=== PATIENT | female | born 1955 | race Caucasian/White ===

== ENCOUNTER → 2018-01-18 07:43 | Outpatient (CLI) | payer OTHER, SELFPAY ==
--- NOTE | 2018-01-18 07:28 | HPBI_ITS ---
MAMMOGRAPHY - BILATERAL SCREENING REASON FOR EXAM: Female, 62 years old. Routine annual screening examination. PERTINENT HISTORY: Non-contributory. TECHNIQUE: Digital bilateral breast sanna (3D mammographic acquisition) in the CC and MLO projections. 2-D mediolateral oblique (MLO) and craniocaudad (CC) views of both breasts were obtained. CAD: Full Field Digital Mammography with Computer Added Detection was performed. COMPARISON: Comparison is made with prior study dated September 04, 2014 and May 06, 2011. FINDINGS: Breast Composition: There are scattered areas of fibroglandular density. There are no dominant masses or suspicious calcifications. The previously seen nodular density in the deep slightly upper medial portion of breast as decreased further in size. It presently measures 7 mm x 5 mm. No other significant abnormalities are identified. There has been no significant change since the prior study. HPBI/SCREENING MAMM (CAD), BILAT IMPRESSION: Stable bilateral screening mammogram. Yearly follow-up mammogram recommended. (A) ASSESSMENT CATEGORY: BIRADS Category 2: Benign. A letter regarding these results will be sent to the patient by the facility within 30 days. Approximately 10% of breast cancers are not detected by mammography. A normal mammogram should not delay biopsy of a clinically suspicious abnormality. [id number] Electronically Signed: Esau Valadez MD at 8:47 EDT Tel [phone], Service support ,
== END ==
DX: Z12.31 Encounter for screening mammogram for malignant neoplasm of breast (principal)
CPT/HCPCS: 77063; 77067

== ENCOUNTER → 2019-09-06 07:06 | Outpatient (CLI) | payer OTHER, SELFPAY ==
[2019-01-30 12:21] VITALS: BMI 40.6
--- NOTE | 2019-09-06 06:49 | BI_ITS ---
MAMMOGRAPHY - BILATERAL SCREENING REASON FOR EXAM: Female, 64 years old. Routine annual screening examination. PERTINENT HISTORY: Non-contributory. TECHNIQUE: Digital bilateral breast niles (3D mammographic acquisition) in the CC and MLO projections. 2-D mediolateral oblique (MLO) and craniocaudad (CC) views of both breasts were obtained. CAD: Full Field Digital Mammography with Computer Added Detection was performed. COMPARISON: Comparison is made with prior study of January 18, 2018 and September 04, 2014. FINDINGS: Breast Composition: There are scattered areas of fibroglandular density. There are no dominant masses or suspicious calcifications. No other significant abnormalities are identified. There has been no significant change since the prior study. BI/SCREEN MAMM (CAD) W/NILES BILAT IMPRESSION: Stable bilateral screening mammogram. Yearly follow-up mammogram recommended. (A) ASSESSMENT CATEGORY: BIRADS Category 1: Negative. A letter regarding these results will be sent to the patient by the facility within 30 days. Approximately 10% of breast cancers are not detected by mammography. A normal mammogram should not delay biopsy of a clinically suspicious abnormality. [id number] Electronically Signed: Esau Valadez, at 8:58 EST , Service support ,
--- NOTE | 2019-09-06 07:08 | RAD_ITS ---
STUDY: X-RAY - RIGHT KNEE REASON FOR EXAM: Female, 64 years old. Bilateral knee pain worse on the left side. TECHNIQUE: 4 view(s) of the knee. COMPARISON: None. FINDINGS: Normal visualized distal femur. Normal visualized proximal tibia and fibula. Normal proximal tibiofibular articulation. There is moderate degenerative arthrosis of the medial femorotibial compartment with moderate joint space narrowing. Normal lateral femorotibial compartment. There is moderate degenerative arthrosis of the patellofemoral articulation. The soft tissue structures are unremarkable. RAD/Knee 4 or More Views IMPRESSION: Degenerative arthrosis. Electronically Signed: Esau Valadez, at 15:14 EST , Service support ,
--- NOTE | 2019-09-06 07:08 | RAD_ITS ---
STUDY: X-RAY - LEFT KNEE REASON FOR EXAM: Female, 64 years old. Bilateral knee pain worse on the left side. TECHNIQUE: 4 view(s) of the knee. COMPARISON: None. FINDINGS: Normal visualized distal femur. Normal visualized proximal tibia and fibula. Normal proximal tibiofibular articulation. There is severe degenerative arthrosis of the medial femorotibial compartment with severe joint space narrowing. Normal lateral femorotibial compartment. There is moderate degenerative arthrosis of the patellofemoral articulation. The soft tissue structures are unremarkable. RAD/Knee 4 or More Views IMPRESSION: Degenerative arthrosis. Electronically Signed: Esau Valadez, at 15:13 EST , Service support ,
== END ==
PROVIDERS: Visit Provider Orthopaedic Surgery
DX: M17.11 Unilateral primary osteoarthritis, right knee (principal); M17.12 Unilateral primary osteoarthritis, left knee; Z12.31 Encounter for screening mammogram for malignant neoplasm of breast
CPT/HCPCS: 73564; 77063; 77067

== ENCOUNTER → 2019-11-27 07:42 | Outpatient (CLI) | payer OTHER, SELFPAY ==
[2019-01-30 12:21] VITALS: BMI 40.6
--- NOTE | 2019-11-27 07:51 | CT_ITS ---
STUDY: CT SCAN OF THE LEFT LOWER EXTREMITY FOR [facility] PROTOCOL. REASON FOR EXAM: Female, 64 years old. LEFT KNEE REPLACEMENT SCAN. [facility] PROTOCOL RADIATION DOSAGE (If Supplied By Facility): CTDIvol = ( 44.50 ) mGy, DLP = ( 5336.50 ) mGycm. Individualized dose optimization techniques were used for this CT.? TECHNIQUE: Multiple axial tomographic images of the hip joint, knee joint and ankle joint were obtained without intravenous contrast administration. Coronal and sagittal reconstruction was obtained as well. COMPARISON: None. FINDINGS: There is a marked degree of the osteoarthritis with spur formation along the medial compartment of the knee joint. Mild degree of degenerative changes of the lateral compartment of the knee joint as well as the patellar compartment. No significant joint effusion is seen. The left hip and left ankle are unremarkable. CT/Extremity Lower without Contra IMPRESSION: Marked degree of joint space narrowing and spur formation of the knee joint as described. Electronically Signed: Esau Valadez, at 11:12 EST , Service support ,
== END ==
PROVIDERS: Visit Provider Orthopaedic Surgery
DX: M17.12 Unilateral primary osteoarthritis, left knee (principal); M21.162 Varus deformity, not elsewhere classified, left knee
CPT/HCPCS: 73700

== ENCOUNTER 2019-12-11 16:21 | Observation (INO) | payer OTHER, SELFPAY ==
[2019-01-30 12:21] VITALS: BMI 40.6
[2019-11-27 09:08] VITALS: BP 151/82; PULSE 63; RESP 16; TEMP 36.4; O2SAT 96; BMI 40.4
--- NOTE | 2019-11-27 09:27 | SDCEKG_ITS ---
Test Reason : Blood Pressure : / mmHG Vent. Rate : 058 BPM Atrial Rate : 058 BPM P-R Int : 164 ms QRS Dur : 086 ms QT Int : 420 ms P-R-T Axes : 044 -25 008 degrees QTc Int : 412 ms Sinus bradycardia Moderate voltage criteria for LVH, may be normal variant Borderline ECG Confirmed by SUNNI KWOK, RADHA ([id number]), supervising editor trailer BELEN SARAVIA ([id number]) on 11/28/2019 12:14:42 PM Referred By: ANGELO BECERRIL Confirmed By:RADHA MOELLER MD
[2019-11-27 09:53] LABS: Absolute Lymphocyte Count 0.64 X10^3/uL (0.83-4.51); Absolute Neutrophil Count 3.3 X10^3/uL (2.0-7.7); Basophil# 0.01 X10^3/uL; Basophil% 0.2 % (0-1); Eosinophil# 0.04 X10^3/uL; Eosinophils% 0.9 % (0-5); Hematocrit 39.6 % (37-47); Lymphocyte # 0.64 X10^3/ul (4.0); Mean Corp Hgb Conc 32.8 g/dL (32-36); Mean Corpuscular Volume 91.2 fL (81-99); Mean Platelet Vol. 11.1 fl (6.2-12.0); Monocyte# 0.28 X10^3/uL; Monocyte% 6.5 % (0-10); NRBC Flagged by Analyzer 0 % (0-5); Neutrophil % 77.2 % (47-70); Platelet Count 225 K/mm3 (150-450); RBC Distribution Width CV 13.2 % (11.6-14.6); RBC Distribution Width SD 44.4 fl (35.1-43.9); Red Blood Count 4.34 M/mm3 (4.2-5.4); White Blood Count 4.3 K/mm3 (4.4-11.0)
[2019-11-27 10:26] LABS: Anion Gap 4 (5-15); BUN 13 mg/dL (7-18); BUN/Creat Ratio 18.7 RATIO (10-20); Chloride 106 mmol/L (98-107); EST Glomerular Filtration Rate 90 mL/min (>60); Est Glom Filt Rate - Afr Amer 109 mL/min (>60); Estimated Creatinine Clearance 80.83 ml/min; Glucose 88 mg/dL (74-106); Potassium 3.8 mmol/L (3.5-5.1); Sodium Level 139 mmol/L (136-145)
[2019-12-11] VITALS (11 sets, daily range): BP systolic 108–155; BP diastolic 78–95; PULSE 71–88; RESP 16–18; TEMP 36.4–36.9; O2SAT 94–100; BMI 40.4
--- NOTE | 2019-12-11 13:41 | RAD_ITS ---
STUDY: X-RAY - LEFT KNEE REASON FOR EXAM: Female, 64 years old. POST OP TOTAL LEFT KNEE REPLACEMENT. TECHNIQUE: 2 views of the knee. COMPARISON: 4 plain film images of the left knee September 06, 2019. FINDINGS: Normal density of the visualized distal femur. Normal density of the visualized proximal tibia and fibula. Normal proximal tibiofibular articulation. There is no demonstrated fracture. The patient has undergone a left total knee arthroplasty. Metal prostheses overlying the femoral condyles and tibial plateau appear well seated, and in anatomic alignment. There is a metal prosthesis at the posterior margin of the patella. Gas lucencies in the peripatellar tissues are consistent with the recent surgery. There are numerous metal skin parvin along the anterior midline. RAD/Knee 1 or 2 Views IMPRESSION: Status post left total knee arthroplasty. Electronically Signed: Vimal Ayala MD at 19:37 EST , Service support ,
[2019-12-11] MEDS: Acetaminophen 500 MG Tablet 1000 MG PO ×2 (13:53→21:34)
[2019-12-11] MEDS: Gabapentin 600 MG Tablet PO (13:54)
[2019-12-11] MEDS: Lactated Ringers 1,000 ML 100 ML IV ×2 (13:55→16:15)
[2019-12-11] MEDS: Magnesium Sulfate 4gm/100mL 4 GM/100 ML IV.SOLN. IV (14:05)
[2019-12-11 14:16] LABS: Bedside Glucose 211 mg/dL (70-110)
[2019-12-11 14:16] LABS: Bedside Glucose 222 mg/dL (70-110)
--- NOTE | 2019-12-11 14:55 | KNEE_PTH ---
PATIENT: BRUCE GROSSMAN LOC: MS3 U#:[id number] AGE/SX: 64/F ROOM: MS310 RE12/11/[address]: Dr. Porfirio Hooks DO : 1955 BED: 1 DIS: 12/12/2019 SPEC #: [id number] RECD: 12/11/19 16:49 STATUS: HILLARY ALEC #: [id number] PRAVIN: 12/11/19 14:[address]: Porfirio Hooks DEPT: SURGICAL PATHOLOGY RECD BY: Marissa Weiner Tissues: Knee, NOS Procedures: Decalcification bone/plaque Surgery Specimen Level IV HEADER OPERATION: ERAS, total replacement robotic arm assist left knee PRE-OP DIAGNOSIS: Primary osteoarthritis bilateral knees TISSUE SUBMITTED: Left knee bone MICROSCOPIC DIAGNOSIS Bone and soft tissue of left knee, total knee resection: Severe degenerative joint disease. Soft tissue with polarizable crystals consistent with pseudogout. AM:aundrea 12/15/19 MICROSCOPIC DESCRIPTION Slides are reviewed. GROSS DESCRIPTION Received is one container designated left knee bone. The specimen consists of multiple fragments of enamorado-yellow bone measuring in aggregate 11 x 10 x 3 cm. Also in the specimen container is soft tissue that consists predominantly of cartilaginous tissue plus a few fragments of soft tissue measuring in aggregate 6 x 3 x 1 cm. A number of bony fragments contain articular surfaces consistent with tibial plateau and femoral condyle and displaying prominent osteophyte formation, eburnation, and bone erosion. Engineering Patternmaker sections are submitted in two cassettes as follows: 1 - soft tissue, 2 - bone after decalcification. / SRUTHI:aundrea 12/12/19 TC:5 CPT: 38588, 12976
[2019-12-11] MEDS: Betamethasone/Betamethasone 30 MG/5 ML Vial (14:59)
--- NOTE | 2019-12-11 16:21 | OP.PCM_ITS ---
Report of Operation Date of Procedure: 12/11/19 Pre-Operative Diagnosis: OA b/l knees Post-Operative Diagnosis: same Surgery/Procedure Performed:: Left TKR --robotically assisted. Intra-articular injection right knee ditching machine operating engineer: Alexsander Briceno Type of Anesthesia:: Spinal Anesthesiologist: Brendan Guajardo - Admit VTE Documentation VTE Present on Admission: No VTE Mechan Device Prophylaxis: SCD's, Thigh High TETO Hose VTE Pharm Prophylaxis ordered?: Yes
[2019-12-11 17:18] LABS: Hematocrit 40.2 % (37-47); Hemoglobin 12.9 g/dL (12.0-15.0); Mean Corp Hgb Conc 32.1 g/dL (32-36); Mean Corpuscular Hgb 29.6 pg (27.0-32.0); Mean Corpuscular Volume 92.2 fL (81-99); Mean Platelet Vol. 11.1 fl (6.2-12.0); Platelet Count 253 K/mm3 (150-450); RBC Distribution Width CV 13.4 % (11.6-14.6); RBC Distribution Width SD 45.8 fl (35.1-43.9); Red Blood Count 4.36 M/mm3 (4.2-5.4); White Blood Count 9.1 K/mm3 (4.4-11.0)
[2019-12-11] MEDS: Senna/Docusate Sodium 1 Tablet 2 TABLET PO (21:34)
[2019-12-11] MEDS: Cefazolin 1 GM/50 ML BAG IV (21:34)
[2019-12-11] MEDS: Aspirin 81 MG TAB.CHEW PO (21:34)
[2019-12-11] MEDS: Lactated Ringers 1,000 ML 125 ML IV (21:35)
[2019-12-12 04:30] VITALS: BP 144/76; PULSE 70; RESP 18; TEMP 36.4; O2SAT 94
[2019-12-12] MEDS: Acetaminophen 500 MG Tablet 1000 MG PO ×2 (05:33→14:36)
[2019-12-12] MEDS: Cefazolin 1 GM/50 ML BAG IV (05:33)
[2019-12-12 06:49] LABS: Hematocrit 37.5 % (37-47); Hemoglobin 12.3 g/dL (12.0-15.0); Mean Corp Hgb Conc 32.8 g/dL (32-36); Mean Corpuscular Hgb 29.9 pg (27.0-32.0); Mean Platelet Vol. 11.4 fl (6.2-12.0); Platelet Count 230 K/mm3 (150-450); RBC Distribution Width CV 13.3 % (11.6-14.6); Red Blood Count 4.12 M/mm3 (4.2-5.4); White Blood Count 11.6 K/mm3 (4.4-11.0)
[2019-12-12 07:10] LABS: BUN 9 mg/dL (7-18); Creatinine, Serum 0.73 mg/dL (0.55-1.02); Glucose 166 mg/dL (74-106)
[2019-12-12 07:11] LABS: Anion Gap 6 (5-15); BUN/Creat Ratio 12.4 RATIO (10-20); Calcium,Total 8.6 mg/dL (8.5-10.1); Chloride 107 mmol/L (98-107); EST Glomerular Filtration Rate 85 mL/min (>60); Est Glom Filt Rate - Afr Amer 103 mL/min (>60); Potassium 4.1 mmol/L (3.5-5.1); Sodium Level 139 mmol/L (136-145)
[2019-12-12 07:31] VITALS: BP 140/66; PULSE 64; RESP 16; TEMP 36.7; O2SAT 93
--- NOTE | 2019-12-12 07:56 | PN.ORTHO_ITS ---
Subjective: Sitting at bed side eating breakfast. Pain well managed. Patient denies chest pain, shortness of breath, calf pain, nausea vomiting. Has no other complaints. Objective: Dressings clean dry intact. Calf nontender, no signs symptoms of DVT. Vital signs labs all reviewed noted in the medical record. Patient is afebrile, neurovascular is otherwise intact. Patient no respiratory distress speaking full sentences. - Physical Exam Vitals/I&O's: Vital Signs Temp Pulse Resp BP Pulse Ox 98.0 F 64 16 140/66 H 93 12/12/19 07:31 12/12/19 07:31 12/12/19 07:31 12/12/19 07:31 12/12/19 07:31 Oxygen Flow Rate (L/min) 6 Oxygen Delivery Method Room Air Weight: 122.5 kg Body Mass Index (BMI) 40.4 Intake and Output for Last 24 Hours 12/10/19 12/11/19 12/12/19 23:59 23:59 23:59 Intake Total 1814.17 / 1814.17 1008.58 / 1008.58 Output Total 850 / 850 Balance 1814.17 / 1564.17 158.58 / 158.58 General: Alert, Oriented x3, Cooperative HEENT: PERRLA Oral: Moist Mucosa Neurological: Cranial nerves II-XII grossly intact Psych/Mental Status: Normal Affect, Alert and oriented to time, place, person, mood and affect Laboratory Results 12/11/19 13:39: POC Glucose 222 H 12/11/19 14:07: POC Glucose 211 H 12/11/19 17:02: WBC 9.1, RBC 4.36, Hgb 12.9, Hct 40.2, MCV 92.2, MCH 29.6, MCHC 32.1, RDW Std Deviation 45.8 H, RDW Coeff of Jessica 13.4, Plt Count 253, MPV 11.1 12/12/19 05:48: WBC 11.6 H, RBC 4.12 L, Hgb 12.3, Hct 37.5, MCV 91.0, MCH 29.9, MCHC 32.8, RDW Std Deviation 45.0 H, RDW Coeff of Jessica 13.3, Plt Count 230, MPV 11.4 12/12/19 05:48: Sodium 139, Potassium 4.1, Chloride 107, Carbon Dioxide 26.0, Anion Gap 6, BUN 9, Creatinine 0.73, Estim Creat Clear Calc 77.50, Est GFR (MDRD) Af Amer 103, Est GFR (MDRD) Non-Af 85, BUN/Creatinine Ratio 12.4, Glucose 166 H, Calcium 8.6 Current Medications Acetaminophen (Tylenol) 1,000 mg PO Q8 [facility] Last Admin: 12/12/19 05:33 Dose: 1,000 mg Documented by: Aspirin (Aspirin, Baby) 81 mg PO BID [facility] Last Admin: 12/11/19 21:34 Dose: 81 mg Documented by: Sodium Chloride () 250 mls @ 15 mls/hr IV .[id number] PRN PRN Reason: Saline Flush Sodium Chloride () 250 mls @ 15 mls/hr IV .[id number] PRN PRN Reason: Additional IVPB Infusion Insulin Human Lispro (Humalog Kwikpen (Bkc)) 1 - 6 unit SC Q4H PRN PRN; Protocol PRN Reason: BG>/= 180, SEE PROTOCOL Ondansetron HCl (Zofran) 4 mg IV Q8H PRN PRN PRN Reason: NAUSEA Oxycodone HCl (Oxyir) 5 - 10 mg PO Q4H PRN PRN PRN Reason: Pain Score 4-10/10 Promethazine HCl (Phenergan) 12.5 mg IM Q6H PRN PRN; Protocol PRN Reason: NAUSEA/VOMITING Senna/Docusate Sodium (Senokot-S, Luz Maria-Colace) 2 tablet PO BID [facility] Last Admin: 12/11/19 21:34 Dose: 2 tablet Documented by: Sodium Chloride () 10 - 40 ml IV UD PRN PRN Reason: SALINE FLUSH Medical Necessity - Tobacco Use Smoking Status: Never smoker Tobacco Use: Non-smoker Assessment/Plan All Active Problems (Last Updated 01/30/19 @ 12:23 by Masha Hale) Shingles (Acute) Sinusitis, acute (Acute) Acute bacterial conjunctivitis (Acute) Status post left total knee arthroplasty 1. Continue all pain medications as prescribed 2. Continue physical therapy, weight-bear as tolerated, with walker. 3. Aspirin 81 mg 1 p.o. every 12 hours x30 days for postop DVT prophylaxis 4. Encourage incentive spirometry 5. Follow-up as scheduled, see katie sheet 6. Discharge home today.
--- NOTE | 2019-12-12 08:04 | DCINST_ITS ---
Discharge Diet: No Restrictions Discharge Activity: May Not Drive, May Shower, Use Walker May shower in (days): 3 Ice area for (Minutes): 20 - each hour while awake. Weight Bearing Status: Weight bearing as tolerated Elevate: Operative Extremity Additional Activity Instructions:: Wear elastic stockings for 2 weeks after your surgery. Call your doctor if your incision/area has: Continuous Slow Oozing, Sudden Increased Bleeding, Increased Pain/ Swelling, Increased Redness, Foul Smelling Discharge Call your doctor if you observe: Fever of 101 or Higher, Coldness, Increased Pain - in extremity, Numbness or Tingling, Change in Color, Calf discomfort, Uncontrolled pain Change Dressing in (Days):: 0 - and daily as needed. Remove Dressing in (days):: 8 Cleanse incision/area with: Soap & Water Allergies/Adverse Reactions: Allergies adhesive Allergy (Verified 12/11/19 13:30) Rash Medications to take at Discharge Multivitamin [Multiple Vitamins] 1 ea PO DAILY 11/27/19 Acetaminophen [Tylenol] 1,000 mg PO Q8 #90 tab 12/12/19 Aspirin [Aspirin, Baby] 81 mg PO BID #60 tab.chew 12/12/19 Oxycodone [Oxyir] 5 - 10 mg PO Q4H PRN PRN 7 Days #84 tablet 12/12/19 Senna/Docusate Sodium [Senokot-S] 2 tablet PO BID tablet 12/12/19 The following prescriptions were given: Aspirin [Aspirin, Baby] 81 mg PO BID #60 tab.chew Transmission Status: Pending to [facility] Oxycodone [Oxyir] 5 - 10 mg PO Q4H PRN PRN 7 Days #84 tablet PRN Reason: Pain Score 4-10/10 Transmission Status: Sent to [facility] Acetaminophen [Tylenol] 1,000 mg PO Q8 #90 tab Transmission Status: Pending to [facility] Primary Care Physician: HEATHER MI [Other] Test Results: Test results from this visit will be discussed in further detail at your follow- up appointment, if applicable. Please Follow Up With: Alexsander Briceno PA-C When: as scheduled (see pink sheet)
--- NOTE | 2019-12-12 09:30 | CASEMGMT ---
AWAIS GARCIA Face to Face with patient for initial transition planning/care coordination assessment. RN CM introduced self and role at [facility]. Patient sitting in chair, alert and oriented. Patient willing to participate in assessment and is able to answer all questions appropriately. Care providers, pharmacy, and demographics verified. Patient wishes to discharge home with [facility]. RN JOSE provided patient with list of HHC in-network with insurance. Patient states she has no further needs or concerns at this time. CM to follow for discharge planning needs that may arise. PCP: Jia Sun Specialists: None Preferred Pharmacy: [facility] Retail Insurance: [facility] Prescription Benefit: yes Living Will/HPOA: yes, daughter Alize Roberts LNOK: daughter Living Arrangements: Patient lives alone in 1 story home with 2 steps and railing to enter the home. Patient independent at home prior to surgery. Transportation: Daughter DME/HHC: Patient has shower chair, raised toilet seat, grab bars, walker at home. Referral made to [facility], awaiting acceptance. Disposition Plan: Patient to discharge home with [facility], family support, and follow-up plans in place. Kanika FLOWERS, RN, CM
[2019-12-12] MEDS: Senna/Docusate Sodium 1 Tablet 2 TABLET PO (11:15)
[2019-12-12] MEDS: Aspirin 81 MG TAB.CHEW PO (11:16)
--- NOTE | 2019-12-12 12:46 | CHAPLAIN ---
Type of Pastoral Visit _x__ Initial Visit ___ Follow-up Visit ___ On-call Visit ___ General Patient Visit ___ Spiritual Assessment ___ Family Conference ___ Bereavement ___ Rapid Response ___ Code Blue ___ Other (describe below) Pastoral Care Referral From _x__ Patient ___ Family ___ Nurse ___ Physician ___ Board Mixer Tender ___ Sorority Supervisor ___ Other (describe below) Sacrament/Intervention _x__ Active listening ___ Anointing ___ Restorationist ___ Bereavement ___ Communion _x__ Nadia exploration ___ ___ Life review _x__ Prayer ___ Reconciliation ___ Sacrament of Sick _x__ Supportive presence ___ Wedding ___ Other (describe below) Pastoral Comments
--- NOTE | 2019-12-12 13:16 | CASEMGMT ---
AWAIS GARCIA called and followed up with [facility]. They are able to accept the patient with planned start of care for tomorrow. AWAIS GARCIA updated the patient and provided [facility] contact information. Patient voiced no further needs or concerns at this time.
[2019-12-12 14:39] VITALS: BP 137/66; PULSE 81; RESP 16; TEMP 36.7; O2SAT 96
== END 2019-12-12 16:55 | disposition home health service (06) ==
LOC: SDC 12-12 08:22 → MS3 12-12 08:41
PROVIDERS: Admitting Provider Orthopaedic Surgery; Referring Provider Orthopaedic Surgery; Visit Provider Orthopaedic Surgery
PROC: 0SRD0JZ Replacement of Left Knee Joint with Synthetic Substitute, Open Approach (ICD-10-PCS; CPT 27447; principal; 2019-12-11 14:25)
DX: M17.0 Bilateral primary osteoarthritis of knee (principal); M21.162 Varus deformity, not elsewhere classified, left knee; R00.1 Bradycardia, unspecified; Z79.899 Other long term (current) drug therapy
CPT/HCPCS: 01400; 20610; 27447; 64447; S2900; 36415; 73560; 80048; 82962; 85025; 85027; 87081; 88305; 88311; 93005; 96361; 96365; 96366; 97162; 97166; 97530; 99218; 99251; C1776; J7120; G0378; G0379; G0463; J0702

== ENCOUNTER 2020-03-01 13:00 | Outpatient (RCR) | payer OTHER, SELFPAY ==
[2019-01-30 12:21] VITALS: BMI 40.6
[2019-12-11 18:18] VITALS: BMI 40.4
--- NOTE | 2020-01-01 13:53 | HP.PTEVAL ---
Patient's Visit Information BRUCE GROSSMAN is a 64 year old F referred to Physical Therapy by Porfirio Hooks DO with a diagnosis of Left TKR. Date of Evaluation: 01/01/20 Physical Therapist: Rochelle Robin DPT - Visit Plan Frequency: 3x /Week Duration: 3 Weeks Plan: Left TKR 12/11/18 Focus on LE and core ROM and strength/stabilization - Subjective Findings: Patient has left TKR 12/11 Dr. Hooks at [facility]- went home 2nd day- single story home with 3 stairs to enter- no problems in/out- lives I. Fully I prior to surgery. She is fully I at this point. Had home health for 2.5 and they sent her to outpatient. They gave her exercises and sent her to [facility]- Wednesday she was at 95 degrees. Patient reports that she is more stiff than painful. Worst: 05/10 Agg: stretching Normal is more 02/08. She is not painfree at this point. Best: 12/11. Reports that pain is more dull and achy. Pain is located in the knee- does not radiate. Sleep: disturbed but is in her bed-mostly sleeps on her sides. Is back to driving. Patient wants to get back to walking for exercise. Prior to the knee being painful- bicycle riding-trail biking- rails and trails. 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 PMHX/Meds: none since surgery. - Objective Posture: FH, RS- does correct with verbal and tactile cues but does not maintain. Gait: decreased stance on the left LE- with poor heel/toe pattern- straight cane. HR/TR: able with UE A. SLS: 2 sec then LOB. Observation: incision healing well no s/s of infection. Palpation: tender along medial and lateral joint line. ROM: 5-97 degrees. Strength: Ankle: 5/5, Knee: 4+/5, Hip: 4/5 throughout Core: fair minus. Flex: HS: moderate, Gastroc: moderate - Goals Goal 1:: Patient will be I with HEP and progression Goal Time Frame: 4-6 Weeks Goal 2:: Patient lupe demo 0-115 degrees of ROM Goal Time Frame: 4-6 Weeks Goal 3:: Patient will ambulate >300 feet with a normalized gait pattern with LRD Goal Time Frame: 4-6 Weeks Goal 4:: Patient will asc/desc 8 stairs recip with 1 HR Goal Time Frame: 4-6 Weeks - Rehabilitation Potential Physical Therapy Diagnosis: Patient presents with hypomobility- she has decreased ROM, strength, flex and muscular endurance leading to abnormal gait pattern and decreased ability to perform ADL's. Rehabilitation Potential: Fair - Anticipated Interventions Patient/Client Instruction: Educate patient on: Benefits of Fitness Program Therapeutic Exercise to Include: Strength training, Endurance training, Balance training, Body mechanics, Flexibilty training, Gait and locomotor training, Passive ROM, Active ROM, Dynamic Lumbar Stabilization For the Purpose of:: To improve muscle performance and motor function TENS: Yes Cryotherapy (ice pack, ice massage): Yes Thermo therapy (hot pack): Yes Ultrasound (thermal/non thermal): No For the Purpose of:: To decrease pain Thank you for the opportunity to evaluate your patient. For Medicare and Medicare HMO plans, please review the plan of care and approve it. It will need to be FAXED BACK to us at [phone] for Medicare purposes. For Medicare only, by signing this I certify the plan of care. Please let me know if there are questions or concerns regarding this plan of care. Physician Signature: Date:
--- NOTE | 2020-01-22 12:13 | HP.PTREVAL ---
Porfirio Hooks, DO, It has been my pleasure to treat BRUCE GROSSMAN over the last 9 visits for Left TKR. Please see the progress note below for an update on the physical therapy plan of care! Subjective: DOS was 12-11-2019. She feels that she is doing ok. She has stairs in her home to basement and using a railing with a reciprical pattern. RTW on February 04... she is on her feet half and half. She has tired and stiffness at the end of the day. Her stamina by the end of the day is reduced. She is doing exercises at home: Stair step stretch, heel and toe raises, sit to stand. She is sleeping ok with tylenol. Objective/Function: pt andree Barajas indep at the end of session today to improve her workout since the gyms are closed now. Plan Plan: Work on increase flexion on an upright bike so that pt will be able to ride her bike this spring.... increase leg press as able and tallker step ups as able with ques to increase gait mechaincis. Left TKR 12/11/18 Focus on LE and core ROM and strength/stabilization Goals Goal 1:: Patient will be I with HEP and progression Goal Time Frame: 4-6 Weeks Goal Progress: Goal Met Goal 2:: Patient lupe demo 0-115 degrees of ROM Goal Time Frame: 4-6 Weeks Goal Progress: Progressing Goal 3:: Patient will ambulate >300 feet with a normalized gait pattern with LRD Goal Time Frame: 4-6 Weeks Goal Progress: Progressing Goal 4:: Patient will asc/desc 8 stairs recip with 1 HR Goal Time Frame: 4-6 Weeks Goal Progress: Progressing Anticipated Interventions Patient/Client Instruction: Educate patient on: Benefits of Fitness Program Therapeutic Exercise to Include: Strength training, Endurance training, Balance training, Body mechanics, Flexibilty training, Gait and locomotor training, Passive ROM, Active ROM, Dynamic Lumbar Stabilization For the Purpose of:: To improve muscle performance and motor function TENS: Yes Cryotherapy (ice pack, ice massage): Yes Thermo therapy (hot pack): Yes Ultrasound (thermal/non thermal): No For the Purpose of:: To decrease pain Please do not hesitate to contact me at [phone] by phone or if you have questions or concerns regarding this new plan of care! Sincerely, Tara Richard, MPT
--- NOTE | 2020-02-05 14:50 | HP.PTREVAL ---
Porfirio Hooks, DO, It has been my pleasure to treat BRUCE GROSSMAN over the last 15 visits for Left TKR. Please see the progress note below for an update on the physical therapy plan of care! Subjective: PATIENT REPORTS SHE RETURNED TO WORK TODAY AT 8AM. RELEASED TO GO BACK FULL DUTY WITHOUT RESTRICTIONS. MY STAMINA IS NOT UP YET AND I KNOW I AM GOING TO DROP TONIGHT. I CAN TELL MY LEFT LEG IS WEAK. GETTING UP OUT OF A CHAIR IS STILL CHALLENGING ESPECIALLY AT THE END OF THE DAY. STILL CAN NOT GET PEDAL ALL THE WAY AROUND ON HER BIKE - TRIED THIS WEEKEND. Objective/Function: PATIENT WAS SEEN TODAY FOR RE-ASSESSMENT OF PROGRESS TOWARD THE SET PT GOALS AND THE NEED FOR FURTHER PHYSICAL THERAPY VS READINESS FOR DISCHARGE. PATIENT IS A GOOD CANDIDATE TO CONTINUE PT BASED ON PROGRESS MADE AND ROOM FOR FURTHER IMPROVEMENT. UPON EXAM TODAY: PATIENT STARTED OUT WITH MINUS 17 DEG EXT BUT WAS DOWN TO MINUS 8 DEG EXT BY END OF SESSION. LEFT KNEE FLEXION IN LYING WITH A HEEL SLIDE IS 111 DEG TODAY. LLE STRENGTH: HIP 4/5, KNEE EXT 3-/5, KNEE FLEX 3-/5, ANKLE 5/5. SHE HAS POOR CORE STRENGTH. PATIENT IS PLEASANT AND COOPERATIVE TO WORK WITH. SHE COMMUNICATED A GOOD UNDERSTANDING OF ALL INSTRUCTIONS AFTER GIVEN TODAY. Plan Plan: CONT PT 3X'S A WK X 4 WKS FOR CORE STRENGTHENING AND DENI LE ROM, STRETCHING AND STRENGTHENING TO HELP MEET SET GOALS. PATIENT IS AGREEABLE. Goals Goal 1:: Patient will be I with HEP and progression Goal Time Frame: 4-6 Weeks Goal Progress: Goal Met Goal 2:: Patient lupe demo 0-115 degrees of ROM Goal Time Frame: 4-6 Weeks Goal Progress: Progressing Goal 3:: Patient will ambulate >300 feet with a normalized gait pattern with LRD Goal Time Frame: 4-6 Weeks Goal Progress: Progressing Goal 4:: Patient will asc/desc 8 stairs recip with 1 HR Goal Time Frame: 4-6 Weeks Goal Progress: Progressing Anticipated Interventions Patient/Client Instruction: Educate patient on: Benefits of Fitness Program Therapeutic Exercise to Include: Strength training, Endurance training, Balance training, Body mechanics, Flexibilty training, Gait and locomotor training, Passive ROM, Active ROM, Dynamic Lumbar Stabilization For the Purpose of:: To improve muscle performance and motor function TENS: Yes Cryotherapy (ice pack, ice massage): Yes Thermo therapy (hot pack): Yes Ultrasound (thermal/non thermal): No For the Purpose of:: To decrease pain Please do not hesitate to contact me at [phone] by phone or if you have questions or concerns regarding this new plan of care! Sincerely, Kristine Sheffield, PT, Cert MDT
--- NOTE | 2020-03-01 14:10 | HP.PTDCSUM ---
It has been my pleasure to treat BRUCE GROSSMAN referred by Porfirio Hooks DO, with the diagnosis of Left TKR for a total of 26 visit(s). Discharge Date: 03/01/20 Please see the following information for a summary of their discharge status. Subjective: PATIENT REPORTS HER KNEE IS DOING GOOD AND DOES NOT HURT. STATES HER LEFT ANKLE IS NO LONGER SWELLING BUT IT GETS SORE IF SHE OVER STRETCHES IT. L knee Pain Intensity (Out of 10): 0 % Improvement: 80 Objective/Function: PATIENT WAS SEEN TODAY FOR RE-ASSESSMENT OF PROGRESS TOWARD THE SET PT GOALS AND THE NEED FOR FURTHER PHYSICAL THERAPY VS READINESS FOR DISCHARGE. AT THIS POINT PATIENT IS A GOOD CANDIDATE FOR DISCHARGE. ALL PT GOALS HAVE BEEN MET. I WOULD ANTICIPATE CONTINUED IMPROVEMENT WITH HEP MOVING FORWARD. PATIENT IS AGREEABLE. UPON EXAM TODAY: PATIENT IS INDEP WITH GAIT WITHOUT ASSISTIVE DEVICE. SHE WALKS WITH A LITTLE BIT OF LLE STIFFNESS BUT IS ABLE TO DEMONSTRATE A HEEL STRIKE, FOOT FLAT AND TOE OFF PATTERN. LLE STRENGTH: HIP 4/5, KNEE 4/5, ANKLE 5/5. THERE IS JUST A SMALL AREA OF THE LEFT LATERAL KNEE THAT HAS DECREASED LIGHT TOUCH SENSATION. SHE IS NOW ABLE TO FULLY EXTEND HER LEFT KNEE AND LEFT KNEE FLEXION IN SUPINE WITH PATIENT OVER-PRESSURE IS ALMOST 118 DEG. SHE IS INDEP WITH A HEP. Goal 1:: Patient will be I with HEP and progression Goal Progress: Goal Met Goal 2:: Patient lupe demo 0-115 degrees of ROM Goal Progress: Goal Met Goal 3:: Patient will ambulate >300 feet with a normalized gait pattern with LRD Goal Progress: Goal Met Goal 4:: Patient will asc/desc 8 stairs recip with 1 HR Goal Progress: Goal Met Plan: D/C TO HEP. If there are questions or concerns regarding this patient's physical therapy, please feel free to call me at [phone]. Thank you for the referral of this patient. Sincerely, Kristine Sheffield, PT, Cert MDT
== END 2020-03-01 19:00 | disposition home or self-care (01) ==
LOC: PT 13:00
PROVIDERS: Referring Provider Orthopaedic Surgery; Visit Provider Orthopaedic Surgery
DX: M17.12 Unilateral primary osteoarthritis, left knee (principal)
CPT/HCPCS: 97110; 97161; 97164; 97530

== ENCOUNTER → 2020-06-19 13:48 | Outpatient (CLI) | payer OTHER, SELFPAY ==
[2020-02-08 12:25] VITALS: BMI 40.4
--- NOTE | 2020-06-19 13:50 | RAD_ITS ---
STUDY: X-RAY - RIGHT KNEE REASON FOR EXAM: Right knee pain, osteoarthritis. TECHNIQUE: 4 view(s) of the knee. COMPARISON: Radiographs 09/06/2019. FINDINGS: Normal visualized distal femur. There is an enchondroma in the proximal fibula as on the prior study. There is a sessile osteochondroma of the medial aspect of the proximal tibial metaphysis as on the prior study. Normal proximal tibiofibular articulation. There is severe joint space narrowing of the medial femorotibial compartment, mildly increased since the prior study. Normal lateral femorotibial compartment. There are small marginal osteophytes and moderately severe joint space narrowing of the patellofemoral articulation as on the prior study. The soft tissue structures are unremarkable. RAD/Knee 4 or More Views IMPRESSION: Arthrosis of the medial femorotibial and patellofemoral compartments. No interval change of osteochondroma of the proximal tibia and enchondroma of the proximal fibula. Electronically Signed: Jonathan Mir MD at 15:25 EDT Tel , Service support ,
--- NOTE | 2020-06-19 13:50 | RAD_ITS ---
STUDY: X-RAY - LEFT KNEE REASON FOR EXAM: Follow-up total knee arthroplasty, surgery 12/11/2019. TECHNIQUE: 3 view(s) of the knee. COMPARISON: Radiographs 12/11/2019. FINDINGS: There is an uncomplicated left total knee arthroplasty. There is a small joint effusion. RAD/Knee 3 Views IMPRESSION: Uncomplicated left total knee arthroplasty. Small joint effusion. Electronically Signed: Jonathan Mir MD at 11:06 EDT Tel , Service support ,
== END ==
PROVIDERS: Referring Provider Physician Assistant; Visit Provider Physician Assistant
DX: M17.11 Unilateral primary osteoarthritis, right knee (principal); Z96.652 Presence of left artificial knee joint
CPT/HCPCS: 73562; 73564

== ENCOUNTER → 2020-10-29 08:56 | Outpatient (CLI) | payer OTHER, SELFPAY ==
[2020-02-08 12:25] VITALS: BMI 40.4
--- NOTE | 2020-10-29 09:01 | RAD_ITS ---
STUDY: X-RAY - PELVIS AND LEFT HIP REASON FOR EXAM: Female, 65 years old. left hip pain x 6 months -- NKI TECHNIQUE: 3 views of the pelvis and hip. COMPARISON: None. FINDINGS: There is a non-specific bowel gas pattern. Normal visualized soft tissue structures. Normal bilateral iliac wings, sacroiliac joints and visualized sacrum. Normal bilateral superior and inferior pubic rami. Normal pubic symphysis. Normal bilateral ischial tuberosities. Normal visualized femoral head. Normal acetabulum. Normal hip joint. RAD/HIP, UNI W/ Pelvis 2-3 Views IMPRESSION: Normal x-ray examination of the pelvis and hip. Electronically Signed: Tex Bobby MD at 9:33 EST Tel , Service support ,
== END ==
PROVIDERS: Visit Provider Orthopaedic Surgery
DX: M25.552 Pain in left hip (principal)
CPT/HCPCS: 73502

== ENCOUNTER 2020-11-27 16:00 | Outpatient (RCR) | payer OTHER, SELFPAY ==
[2020-02-08 12:25] VITALS: BMI 40.4
--- NOTE | 2020-11-04 10:31 | HP.PTEVAL_ITS ---
Patient's Visit Information BRUCE GROSSMAN is a 65 year old F referred to Physical Therapy by Dr. Porfiiro Hooks DO with a diagnosis of L hip pain. Date of Evaluation: 11/04/20 Physical Therapist: Woody Desai DPT - Visit Plan Frequency: 2x /Week Duration: 4 Weeks Plan: Start with L glute strengthening, glute med strengthening. Quad strengthening. Add in cycling as patient feels this is benefitial. May do foam rolling to lateral hip, US if needed. - Subjective Pt. is here today for her initial evaluation with diagnosis of L hip pain. Physician was leaning more towards tendonitis. Pt. has been nice to her L with the holidays which it has felt better, but was pretty sore after doing exercises. Pt. is planning to have R knee arthroplasty at some point. Pt. has been doing wall squats adn stairs to work on her strengthening. This seems to have resulted in increased pain. Pt. did have a L hip xray- negative. Pt. reports pain at her lateral hip into gluteal region. 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 No N/T noted. No radiating pain noted. [facility]. [facility]. Pt. is hopeful to reduce symptoms in order to get back to bike riding without limitations. - Pain L hip Pain Intensity (Out of 10): 2 Pain Intensity Range: 2, 7 Comment: increased pain after stairs, squats - Objective POSTURE: Pt. has decent posture in stance. Slight anterior lean. Normal CRISTI noted. PALPATION: Pt. is tender at TFL, glute med, and piriformis muscle belly. Pt. is also veyr tender along the IT band at the lateral asepct of her L leg. NEURO: normal throughout. ROM: Pt. has goot HS length (slightly tight), good IT band length and slight tightness with her hip ER. MMT: RLE 5-/5 throughout. LLE- knee ext 4+/5, HS 5-/5; hip- flexion 4/5, abd 3+/5, ext 4/5, hip ER 4-/5. GAIT: Pt. has increased lateral hip translation during stance phase. Normal step length. STAIRS: Pt. has increased lateral hip translation during asdcending L stance phase. Increased pain noted. - Special Tests L Hip Scour: Negative L Hip RUFINA - Intraarticular Pathology: Negative L Hip FADDIR - Labrum: Negative L Hip Trendelenberg - Glut Medius: Negative L Hip Ace - IT Band: Positive - Goals Goal 1:: LTG: Pt. to be I with HEP. Goal Time Frame: 4-6 Weeks Goal 2:: STG: Pt. to have decreaed pain to touch of lateral hip and thigh to 0- 1/10. Goal Time Frame: 2-4 Weeks Goal 3:: LTG: Pt. to walk without increase in symptoms. Goal Time Frame: 4-6 Weeks Goal 4:: LTG: Pt. to have increased L hip strength by 1/2 grade in all effected ranges. Goal Time Frame: 4-6 Weeks Goal 5:: LTG: Pt. to get back to cycling without limitations. Goal Time Frame: 4-6 Weeks - Rehabilitation Potential Physical Therapy Diagnosis: Pt. has signs and symptoms consistent with L hip pain. 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 Pt. would benefit from PT to work on the above strengthening progresing back to biking and recreational actviities without limitations. Rehabilitation Potential: Excellent - Anticipated Interventions Patient/Client Instruction: Educate patient on: Condition, Plan of Care, Risk Factors, Benefits of Fitness Program For the Purpose of:: To facilitate caregiver knowledge, To improve self management, To prevent re-injury, To improve ability to perform tasks related to life management, To improve tolerance to ADL's Therapeutic Exercise to Include: Strength training, Power training For the Purpose of:: To decrease pain, To increase ROM, To improve muscle performance and motor function, To improve ability to perform ADL's, To decrease level of supervision to perform tasks, To improve ability of physical actions for home/community/work/leisure, To improve health of tissue, To decrease soft tissue restriction, To improve self management, To prevent re-injury, To improve ability to perform tasks related to life management, To improve tolerance to ADL's Manual Therapy Techniques to Include: Passive ROM, Functional dry needling, Soft tissue mobilization For the Purpose of:: To decrease pain, To decrease swelling/inflammation, To increase ROM, To improve nutrient delivery to tissue, To increase oxygenation perfusion, To improve muscle performance and motor function Thank you for the opportunity to evaluate your patient. For Medicare and Medicare HMO plans, please review the plan of care and approve it. It will need to be FAXED BACK to us at [phone] for Medicare purposes. For Medicare only, by signing this I certify the plan of care. Please let me know if there are questions or concerns regarding this plan of care. Physician Signature: Date:
--- NOTE | 2020-11-29 10:16 | HP.PTDCSUM_ITS ---
It has been my pleasure to treat BRUCE GROSSMAN referred by Dr. Porfirio Hooks DO, with the diagnosis of L hip pain for a total of 8 visit(s). Discharge Date: 11/27/20 Please see the following information for a summary of their discharge status. Subjective: Pt. reports I am 100% better Pt. reports no pain currently. Pt. reports that her hip has been feeling much better. She reports being HEP compliant without limitations. She reprots overall feeling much stronger. L hip Pain Intensity (Out of 10): 0 % Improvement: 100 Objective/Function: MMT: L hip- 5/5 throughout including hip abd, flexion, extension, IR, ER. Core strength fair. ROM: flexion 110deg NE, abd 45deg., adduction- negative obers, exte 20deg NE with vanessa test. Pt. is walking with decreased lateral hip translation this date. STAIRS: slight increase in lateral hip translation compared to gait, but no pain noted, reduced with use of HR. I talked with her about continued lateral hip strengthening to reduce stress at hip and knees with gait. Pt. reports understanding. Goal 1:: LTG: Pt. to be I with HEP. Goal Progress: Goal Met Goal 2:: STG: Pt. to have decreaed pain to touch of lateral hip and thigh to 0- 1/10. Goal Progress: Goal Met Goal 3:: LTG: Pt. to walk without increase in symptoms. Goal Progress: Goal Met Goal 4:: LTG: Pt. to have increased L hip strength by 1/2 grade in all effected ranges. Goal Progress: Goal Met Goal 5:: LTG: Pt. to get back to cycling without limitations. Goal Progress: Goal Met Plan: Pt. to be DC back to physician at this point in time. Pt. to continue with HEP to maintain lateral hip strength and reduce stress to hip/knee with all functional mobility. Discharge Comments: Pt. to be DC from PT at this point in time. Pt. reports no pain with all functional mobility. She reports having a good understanding of her exercises and is ready to progress to independent HEP this date. If there are questions or concerns regarding this patient's physical therapy, please feel free to call me at [phone]. Thank you for the referral of this patient. Sincerely, Woody Desai DPT
== END 2020-11-27 19:00 | disposition home or self-care (01) ==
LOC: PT 16:00
PROVIDERS: Referring Provider Orthopaedic Surgery; Visit Provider Orthopaedic Surgery
DX: M25.552 Pain in left hip (principal)
CPT/HCPCS: 97110; 97140; 97161; 97164

== ENCOUNTER 2021-05-08 11:46 | Emergency (ER) | payer OTHER, SELFPAY ==
[2020-02-08 12:25] VITALS: BMI 40.4
[2021-05-08 11:46] VITALS: BP 164/110; PULSE 75; RESP 16; TEMP 36.7; O2SAT 97; BMI 38.4
--- NOTE | 2021-05-08 11:56 | RAD_ITS ---
STUDY: X-RAY CHEST REASON FOR EXAM: Female, 65 years old. Chest pain TECHNIQUE: Single AP portable view of the chest. COMPARISON: None. FINDINGS: EKG electrodes are seen. The lungs are clear and expanded. There is no demonstrated pleural abnormality. Normal size heart. Normal mediastinum and arthur. Normal visualized pulmonary arteries. There is atherosclerotic calcification of the aortic arch with tortuosity. There are degenerative changes of the visualized thoracic spine. Normal visualized ribs, clavicles, and shoulders. Surgical clips are seen in the epigastric region. Small hiatal hernia. RAD/Chest 1 View (Portable) IMPRESSION: No acute abnormality is seen. Electronically Signed: Esau Valadez MD at 12:39 EDT , Service support ,
--- NOTE | 2021-05-08 11:56 | EKG12_ITS ---
Test Reason : CP Blood Pressure : / mmHG Vent. Rate : 070 BPM Atrial Rate : 070 BPM P-R Int : 166 ms QRS Dur : 082 ms QT Int : 406 ms P-R-T Axes : 042 -27 010 degrees QTc Int : 438 ms Normal sinus rhythm with sinus arrhythmia Nonspecific ST abnormality Abnormal ECG Confirmed by SUNNI KWOK, RADHA ([id number]), publication editor PIPPA SOLOMON ([id number]) on 05/12/2021 1:01:48 PM Referred By: ANDERS/HARLEEN Confirmed By:RADHA MOELLER MD
[2021-05-08] MEDS: Aspirin 81 MG TAB.CHEW 324 MG PO (12:04)
[2021-05-08 12:13] LABS: Absolute Lymphocyte Count 0.95 X10^3/uL (0.83-4.51); Absolute Neutrophil Count 4.3 X10^3/uL (2.0-7.7); Basophil# 0.02 X10^3/uL; Basophil% 0.3 % (0-1); Eosinophil# 0.05 X10^3/uL; Eosinophils% 0.9 % (0-5); Hematocrit 42.9 % (37-47); Hemoglobin 13.8 g/dL (12.0-15.0); Lymphocyte # 0.95 X10^3/ul (0.83-4.51); Lymphocyte % 16.4 % (19-41); Mean Corp Hgb Conc 32.2 g/dL (32-36); Mean Corpuscular Hgb 29.7 pg (27.0-32.0); Mean Corpuscular Volume 92.5 fL (81-99); Mean Platelet Vol. 11.1 fl (6.2-12.0); Monocyte# 0.53 X10^3/uL; Monocyte% 9.1 % (0-10); NRBC Flagged by Analyzer 0 % (0-5); Neutrophil # 4.25 X10^3/uL (2.7-7.7); Neutrophil % 73.1 % (47-70); Platelet Count 254 K/mm3 (150-450); RBC Distribution Width CV 13.9 % (11.6-14.6); RBC Distribution Width SD 47.5 fl (35.1-43.9); Red Blood Count 4.64 M/mm3 (4.2-5.4); White Blood Count 5.8 K/mm3 (4.4-11.0)
[2021-05-08 12:32] LABS: Anion Gap 4 (5-15); BUN 14 mg/dL (7-18); BUN/Creat Ratio 17.9 RATIO (10-20); Calcium,Total 9.2 mg/dL (8.5-10.1); Chloride 105 mmol/L (98-107); Creatinine, Serum 0.78 mg/dL (0.55-1.02); EST Glomerular Filtration Rate 78 mL/min (>60); Est Glom Filt Rate - Afr Amer 95 mL/min (>60); Estimated Creatinine Clearance 57.83 ml/min; Glucose 92 mg/dL (74-106); Potassium 3.8 mmol/L (3.5-5.1); Sodium Level 137 mmol/L (136-145); Troponin-I HS 3.5 pg/mL (3.0-53.7)
--- NOTE | 2021-05-08 12:52 | EDS_ITS ---
HPI History of Present Illness Chief Complaint: Chest Pain Narrative Narrative: 65-year-old female presenting with chest pain. She states she is had it intermittently over the last couple of weeks and its feels sometimes like pressure in the left chest wall. She states is been constant for the last 2 days and now she has some radiation to her left shoulder. She denies any trauma. She denies any shortness of breath, lightheadedness, diaphoresis. She has no history of DVT/PE and no risk factors. PFSH PFS Medical History Arthritis Knee pain Home Medications multivitamin 1 ea PO DAILY 11/27/19 [History Last Taken Unknown] acetaminophen 1,000 mg PO Q8 #90 tab 12/12/19 [Rx Last Taken Unknown] aspirin 81 mg PO BID #60 tab.chew 12/12/19 [Rx Last Taken Unknown] sennosides-docusate sodium 2 tab PO BID tab 12/12/19 [Rx Last Taken Unknown] Allergy/AdvReac Type Severity Reaction Status Date / Time adhesive Allergy Rash Verified 05/08/21 11:48 Social History Smoking Status: Never smoker alcohol intake: never ROS ROS ED Constitutional Constitutional ED: Denies chills, fever(s) or subjective Eyes Eyes: Denies blurry vision or change in vision Cardiovascular Cardiovascular: Reports chest pain; Denies palpitations or racing heartbeat Respiratory/Chest Respiratory/Chest: Denies cough, dyspnea or sputum Gastrointestinal Gastrointestinal: Denies abdominal pain, nausea or vomiting Genitourinary Genitourinary ED: Denies dysuria or hematuria Musculoskeletal Musculoskeletal: Denies arthralgias, myalgias or neck pain Integumentary Denies abscess or rash Neurologic Neurologic: Denies headache(s) or paresthesias Psychiatric Psychiatric: Denies anxiety or depression EXAM Physical Exam Const Vital Signs: 05/08/21 11:46 05/08/21 12:06 Temperature 98.1 F Temperature Source Temporal Pulse Rate 75 Respiratory Rate 16 Blood Pressure 164/110 H Blood Pressure Mean 128 Pulse Ox 97 Oxygen Delivery Method Room Air Room Air Positive well developed General Appearance ED: well developed and NAD HEENT Reports moist mucous membranes normocephalic and atraumatic Eyes PERRL and EOMs intact bilaterally Resp normal respiratory effort Effort and Inspection: respiratory distress Cardio regular rate and regular rhythm Extremity General Extremety ED: Yes edema; Negative for tenderness General Extremity: edema Neuro oriented x3 Sensorium / Orientation: awake and alert Psych mental status grossly normal Skin no rashes or lesions noted and no wounds Heart Score History: Slightly/Non-Suspicious ECG: Normal Age: >/= 65 years Risk Factors: 1 or 2 Risk Factors Troponin: </= Normal Limit Score: 3 MDM MDM MDM Narrative Medical decision making narrative: 65-year-old female presenting with chest pain which has been intermittent for the last 2 weeks and now constant for 2 days. Her EKG on my interpretation is sinus rhythm at [address] elevation or depression. Chest x-ray on my interpretation shows no acute cardiopulmonary process. D-dimer is negative when age-adjusted. Troponin is normal after 2 days of constant pain. I do not believe she needs a repeat troponin. Her other lab work was unremarkable. She had concern about her blood pressure at home however its been normal in the ED. Her other vitals are stable as well. I feel patient is stable for discharge at this time. She will follow-up with her PCP. Impression: 1. Chest pain Lab Data Attestation: I reviewed the patient's lab results. Labs: Laboratory Results - last 24 hr 05/08/21 05/08/21 05/08/21 12:00 12:00 12:00 WBC 5.8 RBC 4.64 Hgb 13.8 Hct 42.9 MCV 92.5 MCH 29.7 MCHC 32.2 RDW Std Deviation 47.5 H RDW Coeff of Jessica 13.9 Plt Count 254 MPV 11.1 Immature Gran % (Auto) 0.200 Neut % (Auto) 73.1 H Lymph % (Auto) 16.4 L Valencia % (Auto) 9.1 Eos % (Auto) 0.9 Baso % (Auto) 0.3 Absolute Neuts (auto) 4.3 Absolute Lymphs (auto) 0.95 Nucleated RBC % 0 D-Dimer Quant (PE/DVT) 0.60 H* Sodium 137 Potassium 3.8 Chloride 105 Carbon Dioxide 28.0 Anion Gap 4 L BUN 14 Creatinine 0.78 Estim Creat Clear Calc 57.83 Est GFR (MDRD) Af Amer 95 Est GFR (MDRD) Non-Af 78 BUN/Creatinine Ratio 17.9 Glucose 92 Calcium 9.2 Troponin I High Sens 3.5 Radiography Diagnostic Testing: Radiology Impression Chest X-Ray 05/08/21 11:56 IMPRESSION: No acute abnormality is seen. Electronically Signed: Esau Valadez MD at 12:39 EDT , Service support , Discharge Plan Triage Chief Complaint: Chest Pain ED Provider: Eitan Flores Dx/Rx/DC Orders Instructions: ED Chest Pain, Noncardiac Prescriptions: No Action multivitamin 1 EACH tablet 1 ea PO DAILY RF: 0 sennosides-docusate sodium 1 TABLET tablet 2 tab PO BID RF: 0 acetaminophen 500 MG tablet 1,000 mg PO Q8 Qty: 90 RF: 0 aspirin 81 MG tablet,chewable 81 mg PO BID Qty: 60 RF: 0 Referrals: [facility] [Other] Disposition Disposition: Home, Self Care
[2021-05-08 13:05] VITALS: BP 160/71; PULSE 58; RESP 17; O2SAT 95
== END 2021-05-08 13:06 | disposition home or self-care (01) ==
PROVIDERS: Emergency Provider Student in an Organized Health Care Education/Training Program
DX: R07.89 Other chest pain (principal); M19.90 Unspecified osteoarthritis, unspecified site; Z79.82 Long term (current) use of aspirin
CPT/HCPCS: 71045; 80048; 84484; 85025; 85379; 93005; 99285; A4216

== ENCOUNTER → 2021-06-09 14:08 | Outpatient (CLI) | payer OTHER, SELFPAY ==
--- NOTE | 2021-06-09 14:15 | RAD_ITS ---
STUDY: X-RAY - RIGHT KNEE REASON FOR EXAM: Chronic right knee pain, osteoarthritis. TECHNIQUE: 4 view(s) of the knee. COMPARISON: Radiographs 06/19/2020. FINDINGS: Normal visualized distal femur. There is a sessile osteochondroma of the medial aspect of the proximal tibial metaphysis without interval change. There is an enchondroma in the proximal fibula without interval change. Normal proximal tibiofibular articulation. There is severe joint space narrowing of the medial femorotibial compartment as on the prior study. Normal lateral femorotibial compartment. There are marginal osteophytes and severe joint space narrowing of the patellofemoral articulation as on the prior study. The soft tissue structures are unremarkable. RAD/Knee 4 or More Views IMPRESSION: Arthrosis of the medial femorotibial and patellofemoral compartments. No interval change of osteochondroma of the proximal tibia and enchondroma of the proximal fibula. Electronically Signed: Jonathan Mir MD at 14:34 EDT Tel , Service support ,
== END ==
PROVIDERS: Referring Provider Orthopaedic Surgery; Visit Provider Orthopaedic Surgery
DX: M17.11 Unilateral primary osteoarthritis, right knee (principal)
CPT/HCPCS: 73564

== ENCOUNTER → 2021-08-11 12:20 | Outpatient (CLI) | payer OTHER, SELFPAY ==
--- NOTE | 2021-08-11 12:49 | CT_ITS ---
STUDY: CT RIGHT LOWER EXTREMITY WITHOUT CONTRAST REASON FOR EXAM: Right knee osteoarthritis, presurgical planning. TECHNIQUE: Transaxial CT imaging of the lower extremity was performed. Coronal and sagittal images were reformatted. Individualized dose optimization techniques were used for this CT. COMPARISON: Radiographs 06/09/2021. FINDINGS: Knee: There are marginal osteophytes, subchondral eburnation/mild cystic change and joint space narrowing of the medial femorotibial compartment (coronal reconstructions 38-40). There is an osteochondroma of the medial aspect of the proximal tibial metaphysis (axial images 403-414). There are small marginal osteophytes with preservation of joint space of the lateral femorotibial compartment. There are marginal osteophytes, subchondral cystic change of the patella and joint space narrowing of the patellofemoral articulation (sagittal reconstructions 36-40). Normal proximal tibiofibular articulation. There is an enchondroma in the proximal fibular metaphysis (coronal reconstructions 54-57) measuring approximately 1.1 cm in length. There is no joint effusion. The quadriceps tendon is grossly normal. The patellar tendon is grossly normal. Normal Hoffa''s fat pad. There is mild vascular calcification. Hip: Unremarkable right hip. Ankle: Normal tibiotalar, posterior subtalar and talonavicular articulations. There is a plantar calcaneal enthesophyte. CT/Extremity Lower without Contra IMPRESSION: Right knee osteoarthritis. Osteochondroma of the proximal tibia. Enchondroma in the proximal fibula. Electronically Signed: Jonathan Mir MD at 15:01 EDT Tel , Service support ,
== END ==
PROVIDERS: Referring Provider Orthopaedic Surgery; Visit Provider Orthopaedic Surgery
DX: M17.11 Unilateral primary osteoarthritis, right knee (principal)
CPT/HCPCS: 73700

== ENCOUNTER 2021-08-25 17:05 | Observation (INO) | payer OTHER, SELFPAY ==
--- NOTE | 2021-08-11 12:41 | EKG12_ITS ---
Test Reason : PRE OP Blood Pressure : / mmHG Vent. Rate : 062 BPM Atrial Rate : 062 BPM P-R Int : 158 ms QRS Dur : 082 ms QT Int : 406 ms P-R-T Axes : 036 -25 034 degrees QTc Int : 412 ms Normal sinus rhythm Normal ECG Confirmed by SUNNI KWOK, RADHA ([id number]), movie editor PIPPA SOLOMON ([id number]) on 08/12/2021 9:29:41 AM Referred By: Porfirio Hooks Confirmed By:RADHA MOELLER MD
[2021-08-11 13:49] LABS: Hematocrit 43.1 % (37-47); Hemoglobin 13.7 g/dL (12.0-15.0); Mean Corp Hgb Conc 31.8 g/dL (32-36); Mean Corpuscular Hgb 29.5 pg (27.0-32.0); Mean Corpuscular Volume 92.7 fL (81-99); Mean Platelet Vol. 11.5 fl (6.2-12.0); Platelet Count 263 K/mm3 (150-450); RBC Distribution Width SD 47.5 fl (35.1-43.9); Red Blood Count 4.65 M/mm3 (4.2-5.4); White Blood Count 5.5 K/mm3 (4.4-11.0)
[2021-08-11 14:11] LABS: Magnesium 2.2 mg/dL (1.6-2.6)
[2021-08-11 14:19] LABS: Anion Gap 6 (5-15); BUN 16 mg/dL (7-18); BUN/Creat Ratio 21.5 RATIO (10-20); Calcium,Total 9.4 mg/dL (8.5-10.1); Chloride 107 mmol/L (98-107); Creatinine, Serum 0.74 mg/dL (0.55-1.02); EST Glomerular Filtration Rate 83 mL/min (>60); Est Glom Filt Rate - Afr Amer 100 mL/min (>60); Glucose 92 mg/dL (74-106); Potassium 4.1 mmol/L (3.5-5.1); Sodium Level 141 mmol/L (136-145)
[2021-08-11 14:23] LABS: Hemoglobin A1c 5.5 % (3.8-5.6)
[2021-08-25] VITALS (11 sets, daily range): BP systolic 114–149; BP diastolic 59–80; PULSE 68–81; RESP 16; TEMP 36.2–36.4; O2SAT 92–100; BMI 43.5
[2021-08-25] MEDS: Gabapentin 600 MG Tablet PO (13:47)
[2021-08-25] MEDS: Acetaminophen 500 MG Tablet 1000 MG PO ×2 (13:47→21:31)
[2021-08-25] MEDS: Lactated Ringers 1,000 ML 100 ML IV (13:49)
[2021-08-25] MEDS: Lactated Ringers 1,000 ML 999 ML IV (14:30)
[2021-08-25] MEDS: Lactated Ringers 1,000 ML 125 ML IV (14:30)
--- NOTE | 2021-08-25 15:00 | KNEE_PTH ---
PATIENT: BRUCE GROSSMAN LOC: MS2 U#:[id number] AGE/SX: 65/F ROOM: [facility] RE08/25/[address]: Dr. Porfirio Hooks DO : 1955 BED: 1 DIS: 08/26/2021 SPEC #: [id number] RECD: 08/26/21 09:33 STATUS: HILLARY ALEC #: [id number] PRAVIN: 08/25/21 15:[address]: Porfirio Hooks DEPT: SURGICAL PATHOLOGY RECD BY: Marissa Weiner Tissues: Knee, NOS Procedures: Decalcification bone/plaque Surgery Specimen Level IV HEADER OPERATION: Robotic assisted right total knee PRE-OP DIAGNOSIS: Osteoarthritis right knee TISSUE SUBMITTED: Right debrided bone and tissue MICROSCOPIC DIAGNOSIS Bone and tissue of right knee, total knee resection: Severe degenerative joint disease. Mild synovial hyperplasia. AM:aundrea 08/29/2021 MICROSCOPIC DESCRIPTION Slides are reviewed. GROSS DESCRIPTION Received is one container designated bone and soft tissue right knee. The specimen consists of multiple fragments of enamorado-yellow bone measuring in aggregate 11 x 7 x 3.5 cm. Also in the specimen container are multiple fragments of yellow-white soft tissue measuring in aggregate 5.5 x 1.5 x 1 cm. The soft tissue predominantly consists of cartilaginous tissue. A number of bony fragments contain articular surfaces consistent with tibial plateau and femoral condyle and displaying prominent osteophyte formation, eburnation and bone erosion. Senior Clinical Study Manager sections are submitted in two cassettes as follows: 1 - cartilaginous tissue, 2 - bone after decalcification. / SJ:aundrea 08/26/21 TC:5 CPT: 99417, 07898
--- NOTE | 2021-08-25 16:14 | PCM.OPRPT ---
Report of Operation Date of Procedure: 08/25/21 Pre-Operative Diagnosis: OA right knee Post-Operative Diagnosis: same Surgery/Procedure Performed:: Right TKR Description of Surgical Findings:: Report of Operation Date of Procedure: 08/25/21 Preoperative Diagnosis: [ right ] knee primary osteoarthritis Postoperative Diagnosis: [right ] knee primary osteoarthritis Operation: Robotic Assisted Knee Total Arthroplasty, [ right ] knee Surgeon: Dr Porfirio Hooks DO Market Analyst: Alexsander Briceno PA-C Anesthesia: spinal Anesthesiologist: Brendan Guajardo M.D. Findings: Stable knee with good patella tracking Specimen(s): Bony cuts Complications: No intraoperative complications Estimated Blood Loss: 20 cc IV Fluids: 1000 cc crystalloid Implants Used: 1. Laura Triathlon size 5 press-fit CR femur 2. Mcdermitt Triathlon size 5 tibia 3. 32 mm patella 4. 9 mm CS polyethylene Brief History Operative Indications: [ (65 y/o female) ] with history of [ right ] knee osteoarthrosis with radiographic findings with loss of joint space, osteophyte formation and subchondral sclerosis. Failed conservative measures as mentioned in the H&P. Discussion of total knee arthroplasty as well as risk and benefits were discussed with the patient including but not limited to blood loss, DVTs, PEs, neurovascular damage, general risk of anesthesia including loss of life, and stiffness or instability were also discussed with the patient. Patient demonstrated understanding and was able to sign informed consent. Procedure: On the date of procedure, patient's [right ] lower extremity was marked in the preoperative area. The patient was then taken back to the operating room where that patient was placed on the table in the supine position. All bony prominences were identified and well-padded. Anesthesia assumed control of the C-spine and airway throughout the remainder of the procedure. A tourniquet was placed on the [right ] upper thigh and the leg was prepped in a sterile fashion. The surgeon then scrubbed at this time. Upon reentering the room, the [right ] lower extremity was draped in a standard orthopedic fashion. A timeout was then called and everyone agreed upon the side, the site, the procedure to be performed, patient's identity and antibiotics given. Esmarch bandage was used to exsanguinate the extremity and the tourniquet was placed up to 300 mmHg with the knee in flexion. A midline skin incision was made and a sharp dissection was taken down through skin, subcutaneous tissue and fat. The standard medial parapatellar incision was made and the patella was subluxed laterally. An appropriate deep MCL release was done and the fat pad was resected. Our attention was then directed to the patella. The patella was everted and a flat resection was made. The knee was then flexed up and 2 femoral pins were placed inside the incision and 2 tibial pins were placed outside the incision in the medial tibia bicortically. Once this was completed, the 2 checkpoints in the femur and tibia were placed. Knee was then flexed up and the bony landmarks were registered. Once the was completed, the knee taken through range of motion and manually stressed allowing us to plan for an appropriate tibial cut. The robotic arm was brought into the field sterilely and checkpoint and saw were registered. Based on the patient's deformity, the tibial cut was made in [2 degrees varus ]. At this time, the tensioner was then placed in the joint and ligament tension was checked at 90 degrees and full extension. Based on the patient's ligamentous tension, appropriate adjustments were made to the operative plan and ligament releases were done. Once we were happy with our operative plan with balanced flexion and extension gaps, our attention was directed to the femur. The robot was brought into the field sterilely and registered. Posterior condylar cuts, anterior chamfer cuts and anterior cuts were appropriately made for a [size 5 ] femur. When these were completed, the saws were switched out in the distal femoral and posterior chamfer cuts were made. Protecting the soft tissue throughout this time. A [size 5 ] base plate was selected. The knee was flexed to 90 degrees and soft tissues and posterior osteophytes were removed from the joint. 40 cc of the periarticular injection was injected into the posterior medial corner of the joint. The appropriate trials were then placed on the femur and tibia. A trial polyethylene was trialed to ensure proper balancing and stability of the knee. The appropriate tibial internal rotation was then marked with a bovie. Our attention was then directed to the patella. The lug holes were drilled and the patella trial was placed. Patellar tracking was checked and deemed appropriate. Once we were happy, lug holes were drilled for the femur and trial components were removed. The tibia was subluxed and pinned into place and the keel was punched and drilled appropriately. Final components were verified and opened. The wound was copiously irrigated with normal saline. The components were impacted into place with the tibia, femur and finally the patella. The trial poly component was placed and the knee was placed in full extension. The tracking, alignment and balance were verified and a [ ] polyethylene component was placed. Once the final components were placed an Irrisept lavage was performed and the wound was copiously irrigated with normal saline solution and the periarticular injection was given. the wound was closed in a layer-quiñones fashion using #1 vicryl interrupted sutures for the arthrotomy, 2-0 interrupted vicryl suture for the subcuticular layer and parvin for final skin closure. A sterile compressive dressing was then placed. The patient was then awakened from anesthesia, transferred to the [place]vue and transferred to the PACU for recovery. My physician executive personal assistant was a vital part of this case. He was important in appropriate retraction during the case, and protection of soft tissues during bony cuts. His intimate knowledge of the case and my steps aided in safe and expedient completion of the procedure as well as appropriate position of the leg during the case. He was also vital in assisting with closure under my direct supervision. Due to the complexity of this case, robotic arm was used to assist in the surgery to improve accuracy and clinical outcomes. Post-op Plan: DVT ppx; ASA 81 mg BID, thigh high compression stockings Follow up: in office in 2 weeks for wound check PT: to start POD #0 at hospital, outpatient PT should be arranged. Preoperative antibiotic: Ancef 3 grams IV Porfirio Hooks DO Surgeon: Porfirio Hooks wrapper dipper: Alexsander Briceno Type of Anesthesia: Spinal Anesthesiologist: Brendan Guajardo Estimated Blood Loss (mL): 20 cc Fluids Replaced: 1000 cc crystalloid Admit VTE Documentation VTE Present on Admission: No VTE Mechan Device Prophylaxis: SCD's and Thigh High TETO Hose VTE Pharm Prophylaxis ordered?: Yes
--- NOTE | 2021-08-25 17:40 | RAD_ITS ---
STUDY: X-RAY - RIGHT KNEE REASON FOR EXAM: Female, 65 years old. post op -- AP and Lateral xray of operative knee in PACU TECHNIQUE: 2 view(s) of the knee. COMPARISON: June 09, 2021 FINDINGS: Newly placed tricompartmental hardware is present demonstrating good bony contact and alignment. The tibial stem is non-cemented. Tract muller are seen in the undersurface of the patella due to placement of a radiolucent prosthetic component. There are expected postoperative changes in the soft tissues and joint including gas, fluid, and swelling. Osteotomy defects are seen in the distal femur and proximal tibial shaft. Multiple overlying skin parvin are present. Broad-based benign osteochondroma of the medial side of the proximal tibial metaphysis noted. RAD/Knee 1 or 2 Views IMPRESSION: Status post right knee arthroplasty Electronically Signed: Raheem Hodge MD at 19:31 EDT , Service support ,
[2021-08-25] MEDS: Cefazolin 1 GM/50 ML BAG IV (21:25)
[2021-08-25] MEDS: Senna/Docusate Sodium 1 Tablet 2 TABLET PO (21:30)
[2021-08-25] MEDS: Aspirin 81 MG TAB.CHEW PO (21:31)
[2021-08-26 00:07] VITALS: BP 121/64; PULSE 76; RESP 18; TEMP 36.3; O2SAT 93
[2021-08-26 05:15] VITALS: BP 148/78; PULSE 76; RESP 16; TEMP 36.7; O2SAT 92
[2021-08-26] MEDS: Cefazolin 1 GM/50 ML BAG IV (05:17)
[2021-08-26] MEDS: Acetaminophen 500 MG Tablet 1000 MG PO ×2 (05:17→14:44)
[2021-08-26] MEDS: oxyCODONE 5 MG Tablet PO ×2 (05:17→10:52)
--- NOTE | 2021-08-26 05:43 | PCS.PANDOC ---
PANDEMIC DOCUMENTATION INITIATED: Date: 08/25/2021 Time: 1939
[2021-08-26 06:33] LABS: Hematocrit 38.4 % (37-47); Hemoglobin 12.8 g/dL (12.0-15.0); Mean Corp Hgb Conc 33.3 g/dL (32-36); Mean Corpuscular Volume 90.1 fL (81-99); Mean Platelet Vol. 10.9 fl (6.2-12.0); Platelet Count 222 K/mm3 (150-450); RBC Distribution Width CV 14.2 % (11.6-14.6); Red Blood Count 4.26 M/mm3 (4.2-5.4); White Blood Count 12.3 K/mm3 (4.4-11.0)
[2021-08-26 06:58] LABS: Anion Gap 9 (5-15); BUN 9 mg/dL (7-18); Calcium,Total 8.6 mg/dL (8.5-10.1); Chloride 105 mmol/L (98-107); Creatinine, Serum 0.69 mg/dL (0.55-1.02); EST Glomerular Filtration Rate 90 mL/min (>60); Est Glom Filt Rate - Afr Amer 109 mL/min (>60); Estimated Creatinine Clearance 53.81 ml/min; Glucose 146 mg/dL (74-106); Potassium 4.4 mmol/L (3.5-5.1); Sodium Level 138 mmol/L (136-145)
--- NOTE | 2021-08-26 07:49 | PN.ORTHO_ITS ---
Subjective Subjective Patient sitting at bedside. Patient states pain is been very well managed. Patient states she did well with therapy. Patient denies chest pain, shortness of breath, calf pain, nausea vomiting. Patient states she is ready for discharge home. Patient plans on doing home therapy. Objective Data Objective Data Vital Signs: Vital Signs Temp Pulse Resp BP Pulse Ox 98.1 F 76 16 148/78 H 92 08/26/21 05:15 08/26/21 05:15 08/26/21 05:15 08/26/21 05:15 08/26/21 05:15 Oxygen Flow Rate (L/min) 6 Oxygen Delivery Method Room Air Weight: 126.2 kg Body Mass Index (BMI) 43.5 Intake & Output: Intake and Output for Last 24 Hours 08/24/21 08/25/21 08/26/21 23:59 23:59 23:59 Intake Total 2875.41 / 2875.41 187 / 187 Output Total 600 / 600 400 / 400 Balance 2275.41 / 2275.41 -213 / -213 Lab / Micro Data Result Diagrams: 08/26/21 06:24 08/26/21 06:24 Labs: Laboratory Results - last 24 hr 08/26/21 06:24: WBC 12.3 H, RBC 4.26, Hgb 12.8, Hct 38.4, MCV 90.1, MCH 30.0, MC HC 33.3, RDW Std Deviation 47.0 H, RDW Coeff of Jessica 14.2, Plt Count 222, MPV 10.9 08/26/21 06:24: Sodium 138, Potassium 4.4, Chloride 105, Carbon Dioxide 24.0, Anion Gap 9, BUN 9, Creatinine 0.69, Estim Creat Clear Calc 53.81, Est GFR (MDRD) Af Amer 109, Est GFR (MDRD) Non-Af 90, BUN/Creatinine Ratio 13.0, Glucose 146 H, Calcium 8.6 Micro: Microbiology 08/11/21 12:28 Swab (Method) Nasal Screen MRSA/MSSA - Final Radiography Diagnostic Testing: Radiology Impression Knee X-Ray 08/25/21 17:40 IMPRESSION: Status post right knee arthroplasty Electronically Signed: Raheem Hodge MD at 19:31 EDT , Service support , Physical Exam Narrative The dressing is clean dry intact. Negative signs or symptoms of DVT. Vital signs labs reviewed noted medical record. Patient is no respiratory distress, speaking in full sentences. Patient neurovascular is intact to lower extremities. Const alert and oriented x3 Eyes PERRL Neuro CN's II-XII intact bilaterally Psych mental status grossly normal Assessment & Plan Assessment/Plan (1) Status post total right knee replacement not using cement: PLAN: 1. Continue all pain medications as prescribed 2. Continue physical therapy, weight-bear as tolerated with walker 3. Aspirin 81 mg 1 p.o. every 12 hours x30 days for postop DVT prophylaxis 4. Encourage incentive spirometry 5. Follow-up as scheduled see pink sheet 6. Discharge home today
--- NOTE | 2021-08-26 07:52 | PCM.DC ---
Discharge Instructions Diet Discharge Diet: No restrictions Activity Discharge Activity: May Not Drive, May Shower and Use Walker May shower in (days): 3 Ice area for (Minutes): 20 (every hour while awake.) Weight Bearing Status: Weight bearing as tolerated Keep extremity elevated above heart level: Operative Extremity Dressing / Incision Call your doctor if your incision/area has: Continuous Slow Oozing, Sudden Increased Bleeding, Increased Pain/ Swelling, Increased Redness and Foul Smelling Discharge Call your doctor if you observe: Fever of 101 or Higher, Coldness, Increased Pain (in extremity), Numbness or Tingling, Change in Color, Calf discomfort and Uncontrolled pain Change Dressing in: do not change dressing Remove Dressing in: 1 week Cleanse incision/area with: Soap & Water Follow Up Care Please Follow Up With: Alexsander Briceno PA-C When: As scheduled (see pink sheet) Test Results: Test results from this visit will be discussed in further detail at your follow-up appointment, if applicable. Discharge Plan Admission Admit Date/Time: 08/25/21 17:05 Primary Reason for Your Visit: Right total knee Attending Provider: Porfirio Hooks Discharge Orders/Prescriptions Prescriptions: New acetaminophen 500 mg Tablet 1,000 mg PO Q8 30 Days Qty: 180 RF: 0 aspirin 81 mg Tablet,Chewable 81 mg PO BID 30 Days Qty: 60 RF: 0 oxycodone 5 mg Tablet 5 - 10 mg PO Q4H PRN PRN (Reason: Pain Score 4-10) 7 Days Qty: 84 RF: 0 Continued losartan 50 mg Tablet 50 mg PO DAILY RF: 0 meloxicam 15 mg Tablet 15 mg PO DAILY RF: 0 Referrals / Follow Up: HEATHER [facility] [Other] Disposition Disposition (needs filled in before D/C Order can be placed): Home, Self Care
[2021-08-26 10:47] VITALS: BP 131/61; PULSE 73; RESP 16; TEMP 36.4; O2SAT 93
[2021-08-26] MEDS: Aspirin 81 MG TAB.CHEW PO (10:50)
--- NOTE | 2021-08-26 11:10 | CASEMGMT ---
AWAIS GARCIA Face to Face with patient for initial transition planning/care coordination assessment. RN JOSE introduced self and role at [facility]. Patient lying in bed, alert and oriented. Patient willing to participate in assessment and is able to answer all questions appropriately. Care providers, pharmacy, and demographics verified. Patient wishes to discharge home, with [facility] for therapy. Patient has had [facility] in the past and would like them again. Patient states she has no further needs or concerns at this time. Referral sent to [facility] and waiting acceptance. CM to follow for discharge planning needs that may arise. PCP: Jia Sun Specialists: gracia Hooks Pharmacy: [facility] retail Insurance: [facility] Prescription Benefit: yes Living Will/HPOA: yes Alize Roberts LNOK: daughter Living Arrangements: Patient lives alone in a single story home with 3 steps and railing to enter the home. Patient states she was independent at home prior to surgery Transportation: [facility] DME/HHC: Patient states she has shower chair, raised toilet, cane, walker at home. Patient has had [facility] in the past. Disposition Plan: Patient to discharge home with [facility], family support, and follow-up plans in place. Kanika FLOWERS, RN, CM
--- NOTE | 2021-08-26 12:13 | CHAPLAIN ---
Type of Pastoral Visit _x__ Initial Visit ___ Follow-up Visit ___ On-call Visit ___ General Patient Visit ___ Spiritual Assessment ___ Family Conference ___ Bereavement ___ Rapid Response ___ Code Blue ___ Other (describe below) Pastoral Care Referral From _x__ Patient ___ Family ___ Nurse ___ Physician ___ Embroidery Patternmaker ___ Metal Punch Press Operator ___ Other (describe below) Sacrament/Intervention _x__ Active listening ___ Anointing ___ Oriental Orthodox ___ Bereavement ___ Communion _x__ Nadia exploration ___ _x__ Life review _x__ Prayer ___ Reconciliation ___ Sacrament of Sick _x__ Supportive presence ___ Wedding ___ Other (describe below) Pastoral Comments
--- NOTE | 2021-08-26 13:30 | CASEMGMT ---
AWAIS GARCIA recieved call from Raheem at [facility] and they are able to accept the patient but will use their sister company [facility] to open patient tomorrow. AWAIS GARCIA updated patient and she is agreeable to plan. Patient had no further questions or concerns at this time.
[2021-08-26 16:45] VITALS: BP 132/60; PULSE 76; RESP 16; TEMP 36.7; O2SAT 95
[2021-08-27 07:35] LABS: Bedside Glucose 85 mg/dL (70-110)
== END 2021-08-26 16:30 | disposition home health service (06) ==
LOC: SDC 17:10 → MS2 17:10
PROVIDERS: Anesthesiology; Admitting Provider Orthopaedic Surgery; Referring Provider Orthopaedic Surgery; Visit Provider Orthopaedic Surgery
PROC: 0SRC0JZ Replacement of Right Knee Joint with Synthetic Substitute, Open Approach (ICD-10-PCS; CPT 27447; principal; 2021-08-25 14:30)
DX: M17.11 Unilateral primary osteoarthritis, right knee (principal); Z79.899 Other long term (current) drug therapy; I10 Essential (primary) hypertension; E66.01 Morbid (severe) obesity due to excess calories; Z68.41 Body mass index [BMI] 40.0-44.9, adult
CPT/HCPCS: 01402; 27447; 64447; S2900; 36415; 73560; 80048; 82962; 83036; 83735; 85027; 87081; 88305; 88311; 93005; 96365; 96366; 97110; 97161; 97166; 97530; 99218; 99251; C1776; J7050; J7120; G0378; G0463; J2405

== ENCOUNTER → 2021-09-22 13:56 | Outpatient (CLI) | payer OTHER, SELFPAY ==
--- NOTE | 2021-09-22 14:07 | RAD_ITS ---
STUDY: X-RAY - RIGHT KNEE REASON FOR EXAM: Female, 66 years old. Follow-up after total knee arthroplasty. TECHNIQUE: 3 view(s) of the knee. COMPARISON: 08/25/2021. FINDINGS: Osteopenia. Three component total knee arthroplasty in anatomic alignment. Diffuse mild soft tissue swelling with small joint effusion. RAD/Knee 4 or More Views IMPRESSION: Anatomic alignment of the total knee arthroplasty with diffuse soft tissue swelling and small joint effusion. Electronically Signed: Alexsander Long MD at 9:41 EST , Service support ,
== END ==
PROVIDERS: PCP Family Medicine; Referring Provider Orthopaedic Surgery; Visit Provider Orthopaedic Surgery
DX: Z96.651 Presence of right artificial knee joint (principal)
CPT/HCPCS: 73564

== ENCOUNTER 2021-11-14 10:00 | Outpatient (RCR) | payer OTHER, SELFPAY ==
--- NOTE | 2021-09-17 12:11 | HP.PTEVAL_ITS ---
Patient's Visit Information BRUCE GROSSMAN is a 66 year old F referred to Physical Therapy by Dr. Porfirio Hooks DO with a diagnosis of Right TKR. Date of Evaluation: 09/17/21 Physical Therapist: Rochelle Robin DPT - Visit Plan Frequency: 3x /Week Duration: 4 Weeks Plan: Right TKE 08/25/21. Focus on ROM, strength and functional mobility - Subjective Right TKR by Dr. Hooks Aug 25, 2021. Had her other one done Dec 2019- this one is more swollen and the bruising in more significant down the gonzalez. Stayed in the hospital overnight- single story home- three stairs to enter- with HR- doing them one a time no issues. Fully I prior to surgery- lives I but can has people available as needed. Worst: 05/10 Agg: evening, movement. 11:00 is the best time of day. Eases: ice intermittently, oxycodone sometimes at night. Best: 01/08. Describes pain as as anterior distal patella constant burning- both other pains comes and goes- gonzalez is sore and still bruised. Does have some hip pain but they put her on Meloxicam that diminished that. No N/T in the toes. Did have home health- finished up on Wednesday and they sent her here to finish her therapy. Is back to driving this week. No loss or change in bowel or bladder. They took parvin out a week ago- no x-rays since surgery. She has a follow up on Wednesday. 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 Sleep: in bed- disturbed- side sleeper- wakes her when she needs to move. PMHx/Meds: no changes since hospital stay except Meloxicam. - Objective Posture: FH, RS- can correct with verbal cues but does not maintain. Gait: decreased stance on the right LE with poor heel/toe pattern- no AD. HR/TR: able with UE A. SLS: weight shift but unable to SLS. Stairs: asc/desc 8 recip with poor control and significant bilateral UE. Girth: Patella: 58.5 cm 6 above: 74 cm. ROM: 10-100 degrees. Strength: core: fair, Hip: SLR: moderate lag, quad set: visible, add/abd: 4+/5, Extn: 4+/5, Knee: flexion: 12.5 lbs, Extn: 19.1. Flex: HS: severe, Gastroc: severe. Observation: incision healing well- small section towards top with steri-strips intact- no s/s of infection - Balance/Special Test Scores Lower Extremity Functional Score: 17 TUG Test Time Seconds: 15.96 WOMAC Total Score: 57 WOMAC Percentatge: 35.2300 - Goals Goal 1:: Patient will be I with HEP and progression Goal Time Frame: 4-6 Weeks Goal 2:: Patient will demo 0-115 degrees Goal Time Frame: 4-6 Weeks Goal 3:: Patient will asc/desc 8 recip with 1 HR Goal Time Frame: 4-6 Weeks Goal 4:: Patient will ambulate >300 feet with a normalized gait pattern Goal Time Frame: 4-6 Weeks - Rehabilitation Potential Physical Therapy Diagnosis: Patient presents with hypomobility- she has decreased pain free ROM, strength, flex and muscular endurance leading to poor posture and increased pain with ADL's. Rehabilitation Potential: Good - Anticipated Interventions Patient/Client Instruction: Educate patient on: Benefits of Fitness Program Therapeutic Exercise to Include: Strength training, Endurance training, Balance training, Coordination, Agility training, Body mechanics, Postural training, Flexibilty training, Gait and locomotor training, Passive ROM, Active ROM, Dynamic Lumbar Stabilization, Scapular Strength/Stabilization For the Purpose of:: To improve muscle performance and motor function TENS: Yes Cryotherapy (ice pack, ice massage): Yes Thermo therapy (hot pack): Yes Ultrasound (thermal/non thermal): No Thank you for the opportunity to evaluate your patient. For Medicare and Medicare HMO plans, please review the plan of care and approve it. It will need to be FAXED BACK to us at [phone] for Medicare purposes. For Medicare only, by signing this I certify the plan of care. Please let me know if there are questions or concerns regarding this plan of care. Physician Signature: Date:
--- NOTE | 2021-10-20 11:24 | HP.PTREVAL ---
Dr. Porfirio Hooks, DO, It has been my pleasure to treat BRUCE GROSSMAN over the last 12 visits for Right TKR. Please see the progress note below for an update on the physical therapy plan of care! Subjective: Patient reports that she has fatigue and edema but its not really painful. When she has pain is in the gonzalez but comes and goes. She is not back to work yet- has another 4 weeks- Goes back Nov 17. Still challenged from getting up from the commode in the community and the fatigue. She feels that continuation of therapy is a good idea. Objective/Function: Posture: FH, RS- can correct with verbal cues but does not maintain. Gait: slightly antalgic- decreased stance on the right LE. HR/TR: able with UE A. SLS: 5 sec Stairs: asc/desc 8 recip with 2 HR. Girth: Patella: 51.0 cm 6 above: 72ncm. ROM: 0-115 degrees. Strength: core: fair, Hip: SLR: no lag, quad set: visible, add/abd: 4+/5, Extn: 4+/5, Knee: flexion: 24 lbs, Extn: 31. Flex: HS: severe, Gastroc: severe. Observation: incision healing well- no open areas Plan Plan: Right TKR 08/25/21. Focus on ROM, strength and functional mobility. 10/20/21: Continue to progress towards goals and functional mobility. Balance/Gait/Functional tests - Balance/Special Test Scores Lower Extremity Functional Score: 44 TUG Test Time Seconds: 9.6 Tug Test: <10 sec.=free mobile WOMAC Total Score: 21 WOMAC Percentage: 78.1300 Goals Goal 1:: Patient will be I with HEP and progression Goal Time Frame: 4-6 Weeks Goal Progress: Progressing Goal 2:: Patient will demo 0-115 degrees Goal Time Frame: 4-6 Weeks Goal Progress: Goal Met Goal 3:: Patient will asc/desc 8 recip with 1 HR Goal Time Frame: 4-6 Weeks Goal Progress: Progressing Goal 4:: Patient will ambulate >300 feet with a normalized gait pattern Goal Time Frame: 4-6 Weeks Goal Progress: Progressing Anticipated Interventions Patient/Client Instruction: Educate patient on: Benefits of Fitness Program Therapeutic Exercise to Include: Strength training, Endurance training, Balance training, Coordination, Agility training, Body mechanics, Postural training, Flexibilty training, Gait and locomotor training, Passive ROM, Active ROM, Dynamic Lumbar Stabilization, Scapular Strength/Stabilization For the Purpose of:: To improve muscle performance and motor function TENS: Yes Cryotherapy (ice pack, ice massage): Yes Thermo therapy (hot pack): Yes Ultrasound (thermal/non thermal): No Please do not hesitate to contact me at [phone] by phone or if you have questions or concerns regarding this new plan of care! Sincerely, HAILEY JudgeT
--- NOTE | 2022-03-11 07:46 | HP.PT.NRP ---
BRUCE GROSSMAN was seen in my office for initial evaluation on 09/17/21. The following Plan of Care was established for this patient: Initial Frequency: 3x /Week Initial Duration: 4 Weeks Patient/Client Instruction: Educate patient on: Benefits of Fitness Program Therapeutic Exercise to Include: Strength training, Endurance training, Balance training, Coordination, Agility training, Body mechanics, Postural training, Flexibilty training, Gait and locomotor training, Passive ROM, Active ROM, Dynamic Lumbar Stabilization, Scapular Strength/Stabilization For the Purpose of:: To improve muscle performance and motor function TENS: Yes Cryotherapy (ice pack, ice massage): Yes Thermo therapy (hot pack): Yes Ultrasound (thermal/non thermal): No This patient was last seen in our office . Pertinent comments regarding their Physical therapy will appear below: Patient has not attended PT in over 30 days, appropriate to be d/c from PT and return to MD for further evaluation. At this point I will be discontinuing this patient from physical therapy. I would be happy to see this patient again in the future if found appropriate by the physician. Thank you! Rochelle Robin DPT Balance/Gait/Functional tests - Balance/Special Test Scores Lower Extremity Functional Score: 44 TUG Test Time Seconds: 9.6 Tug Test: <10 sec.=free mobile WOMAC Total Score: 21 WOMAC Percentage: 78.1300
== END 2021-11-14 19:00 | disposition home or self-care (01) ==
LOC: PT 10:00
PROVIDERS: Referring Provider Orthopaedic Surgery; Visit Provider Orthopaedic Surgery
DX: M17.11 Unilateral primary osteoarthritis, right knee (principal)
CPT/HCPCS: 97110; 97162; 97164

== ENCOUNTER 2022-02-11 08:17 | Outpatient (CLI) | payer OTHER, SELFPAY ==
--- NOTE | 2022-02-11 08:20 | RAD_ITS ---
STUDY: X-RAY - RIGHT KNEE REASON FOR EXAM: Female, 66 years old. Artificial joint follow-up. TECHNIQUE: 5 view(s) of the knee. COMPARISON: 09/22/2021. FINDINGS: Osteopenia unchanged. Total knee arthroplasty (3 component) unchanged in position and in anatomic alignment. No complications. The soft tissue structures are unremarkable. RAD/Knee 4 or More Views IMPRESSION: Stable uncomplicated total knee arthroplasty. Electronically Signed: Alexsander Long MD at 10:01 EDT ,
== END 2022-02-11 23:59 | disposition home or self-care (01) ==
LOC: RAD 08:18
PROVIDERS: PCP Family Medicine; Visit Provider Physician Assistant Surgical
DX: Z47.1 Aftercare following joint replacement surgery (principal); M17.11 Unilateral primary osteoarthritis, right knee; Z96.651 Presence of right artificial knee joint
CPT/HCPCS: 73564

== ENCOUNTER → 2022-05-12 | Outpatient (CLI) | payer MEDICARE, SELFPAY ==
[2022-05-12 13:49] LABS: T4 Total, Thyroxin 10.5 ug/dL (4.8-13.9); Thyroid Stim Hormone (TSH) 2.16 uIU/mL (0.358-3.74)
== END | disposition home or self-care (01) ==
LOC: LAB 12:29
PROVIDERS: PCP Family Medicine; Visit Provider Family Medicine
DX: G56.03 Carpal tunnel syndrome, bilateral upper limbs (principal)
CPT/HCPCS: 36415; 84436; 84443

== ENCOUNTER → 2023-04-21 | Outpatient (CLI) | payer MEDICARE, SELFPAY ==
--- NOTE | 2023-04-21 09:53 | RAD_ITS ---
EXAM: XR RIGHT FOOT COMPLETE, 3 OR MORE VIEWS CLINICAL INDICATION: PAIN TECHNIQUE: Frontal, lateral and oblique views of the right foot. COMPARISON: No relevant prior studies available. FINDINGS: BONES/JOINTS: Unremarkable. No acute fracture. No subluxation. Normal alignment. Preservation of the joint space. No sclerotic or destructive changes observed. SOFT TISSUES: Unremarkable. No soft tissue swelling or gas. No radiopaque foreign body. RAD/Foot min 3 Views IMPRESSION: Negative right foot x-rays. Electronically Signed: Zachary Luther MD at 23:20 EDT ,
--- NOTE | 2023-04-21 09:55 | RAD_ITS ---
EXAM: XR LEFT FOOT COMPLETE, 3 OR MORE VIEWS CLINICAL INDICATION: PAIN TECHNIQUE: Frontal, lateral and oblique views of the left foot. COMPARISON: No relevant prior studies available. FINDINGS: BONES/JOINTS: Unremarkable. No acute fracture. No subluxation. Normal alignment. Preservation of the joint space. No sclerotic or destructive changes observed. SOFT TISSUES: Unremarkable. No soft tissue swelling or gas. No radiopaque foreign body. RAD/Foot min 3 Views IMPRESSION: Negative left foot x-rays. Electronically Signed: oJn Adams MD at 23:24 EDT ,
[2023-04-21 10:24] LABS: Absolute Lymphocyte Count 1.15 X10^3/uL (0.83-4.51); Absolute Neutrophil Count 3.7 X10^3/uL (2.0-7.7); Basophil# 0.04 X10^3/uL; Basophil% 0.7 % (0-1); Eosinophil# 0.11 X10^3/uL; Hematocrit 41.4 % (37-47); Hemoglobin 13.1 g/dL (12.0-15.0); Lymphocyte # 1.15 X10^3/ul (0.83-4.51); Lymphocyte % 20.9 % (19-41); Mean Corp Hgb Conc 31.6 g/dL (32-36); Mean Corpuscular Volume 91.6 fL (81-99); Mean Platelet Vol. 11.5 fl (6.2-12.0); Monocyte% 9.1 % (0-10); NRBC Flagged by Analyzer 0 % (0-5); Neutrophil % 67.1 % (47-70); Platelet Count 247 K/mm3 (150-450); RBC Distribution Width SD 50.7 fl (35.1-43.9); Red Blood Count 4.52 M/mm3 (4.2-5.4); White Blood Count 5.5 K/mm3 (4.4-11.0)
[2023-04-21 10:56] LABS: Vitamin D,25 Hydroxy 35.5 ng/mL
[2023-04-21 10:59] LABS: Albumin, Serum 3.7 g/dL (3.2-5.0); BUN 17 mg/dL (7-18); BUN/Creat Ratio 25.5 RATIO (10-20); Creatinine, Serum 0.67 mg/dL (0.55-1.02); EST Glomerular Filtration Rate 94 mL/min (>60); Est Glom Filt Rate - Afr Amer 113 mL/min (>60); Glucose 88 mg/dL (74-106); Protein, Total 7.5 g/dL (6.4-8.2)
[2023-04-21 11:00] LABS: AST(SGOT) 14 U/L (15-37); Alanine Aminotransfer ALT/SGPT 16 U/L (13-56); Alkaline Phosphatase 91 U/L (45-117); Anion Gap 5 (5-15); Calcium,Total 9.7 mg/dL (8.5-10.1); Chloride 106 mmol/L (98-107); Cholesterol 210 mg/dL (200); Globulin 3.8 g/dL (2.2-4.2); High Density Lipoprotein 90 mg/dL; Potassium 4.2 mmol/L (3.5-5.1); Sodium Level 140 mmol/L (136-145); T4 Total, Thyroxin 10.1 ug/dL (4.8-13.9); Thyroid Stim Hormone (TSH) 2.65 uIU/mL (0.358-3.74); Triglycerides 91 mg/dL; Very Low Density Lipoprotein 18 mg/dL (5-40)
== END | disposition home or self-care (01) ==
LOC: LAB 09:44
PROVIDERS: PCP Family Medicine; Referring Provider Family Medicine; Visit Provider Family Medicine
DX: E78.2 Mixed hyperlipidemia (principal); E55.9 Vitamin D deficiency, unspecified; M79.673 Pain in unspecified foot
CPT/HCPCS: 36415; 73630; 80053; 80061; 82306; 84436; 84443; 85025

== ENCOUNTER → 2023-04-26 | Outpatient (CLI) | payer MEDICARE, SELFPAY ==
--- NOTE | 2023-04-26 13:10 | BI_ITS ---
MAMMOGRAPHY - BILATERAL SCREENING REASON FOR EXAM: Female, 67 years old. Routine annual screening examination. PERTINENT HISTORY: Non-contributory. TECHNIQUE: Digital bilateral breast niles (3D mammographic acquisition) in the CC and MLO projections. 2-D mediolateral oblique (MLO) and craniocaudad (CC) views of both breasts were obtained. CAD: Full Field Digital Mammography with Computer Added Detection was performed. COMPARISON: Comparison is made with prior study September 06, 2019 and January 18, 2018. FINDINGS: Breast Composition: There are scattered areas of fibroglandular density. There are no dominant masses or suspicious calcifications. Stable small benign appearing bilateral axillary lymph nodes. No other significant abnormalities are identified. There has been no significant change since the prior study. BI/SCRN MAMM (CAD)W/NILES BILAT IMPRESSION: Stable bilateral screening mammogram. Yearly follow-up mammogram recommended. (A) ASSESSMENT CATEGORY: BIRADS Category 2: Benign. A letter regarding these results will be sent to the patient by the facility within 30 days. Approximately 10% of breast cancers are not detected by mammography. A normal mammogram should not delay biopsy of a clinically suspicious abnormality. [id number] Electronically Signed: Esau Valadez MD at 14:20 EDT ,
== END | disposition home or self-care (01) ==
LOC: OPBI 13:07
PROVIDERS: PCP Family Medicine; Referring Provider Family Medicine; Visit Provider Family Medicine
DX: Z12.31 Encounter for screening mammogram for malignant neoplasm of breast (principal)
CPT/HCPCS: 77063; 77067

== ENCOUNTER 2024-02-21 08:09 | Day surgery (SDC) | payer MEDICARE, SELFPAY ==
[2024-02-21 08:24] VITALS: BP 164/88; PULSE 81; RESP 16; TEMP 36.1; O2SAT 98; BMI 42.3
[2024-02-21] MEDS: Lactated Ringers 1,000 ML 15 ML IV (08:32)
--- NOTE | 2024-02-21 09:27 | PCM.HP.STD ---
[facility] - General General Date of Admission: 02/21/24 Date of Service: 02/21/24 Chief Complaint: Screening colonoscopy [facility] Narrative BRUCE GROSSMAN, is a 68 F who presents today for screening colonoscopy. She has a past medical history of mild hypertension. She also has mild gastroesophageal reflux disease is controlled famotidine at night. She had a colonoscopy approximately 10 years ago. There were no abnormalities on a colonoscopy. She comes in today for screening colonoscopy. [facility] Medical History (Updated 02/17/24 @ 08:38 by Shahla Basilio) Arthritis Encounter for screening for COVID-19 GERD (gastroesophageal reflux disease) History of edema History of gastrectomy History of pain when walking Hypertension Knee pain Non-smoker Wears glasses Home Medications losartan 50 mg tablet 50 mg PO DAILY 08/07/21 [History Last Taken 02/20/24] acetaminophen 500 mg tablet 1,000 mg PO Q8 PRN pain 02/17/24 [History Last Taken Unknown] famotidine 40 mg tablet 40 mg PO QHS 02/17/24 [History Last Taken 02/20/24] gfzdbptaagte-srpfabvm-dzsjqu tablet (Milltrium Senior tablet) 1 tab PO DAILY 02/17/24 [History Last Taken Unknown] Allergy/AdvReac Type Severity Reaction Status Date / Time adhesive Allergy Rash Verified 02/21/24 08:24 Surgical History (Updated 02/17/24 @ 08:38 by Shahla Basilio) Hx of arthroscopic knee surgery Hx of colonoscopy Hx of total knee replacement Hx of tubal ligation Social History Smoking Status: Never smoker alcohol intake: never ROS Review of Systems ROS Unobtainable: other Constitutional Constitutional: Denies fatigue, fever(s), poor appetite, weight gain or weight loss ENT HEENT: Denies mouth lesions Cardiovascular Cardiovascular: Denies abdominal bloating, abdominal edema or abdominal pain Respiratory/Chest Respiratory/Chest: Denies change in mental status, change in phlegm color, chest congestion or chest tightness Gastrointestinal Gastrointestinal: Denies belching, bloating, change in bowel habits, change in stool character, chewing difficulty, coffee ground emesis, constipation, cramping, diarrhea, dyspepsia, dysphagia, early satiety, excessive flatus, fecal incontinence, heartburn, hematemesis, hematochezia, hemorrhoids, loose stools, melena, nausea, odynophagia, rectal bleeding, tenesmus, vomiting or weight changes Genitourinary Genitourinary: Denies abdominal discomfort, burning urination or itching Musculoskeletal Musculoskeletal: Reports as per HPI; Denies muscle weakness or myalgias Integumentary Integumentary: Denies jaundice Neurologic Neurologic: Denies lack of coordination or weakness Psychiatric Psychiatric: Denies confusion, depression, memory loss, mood swings, paranoia or suicidal ideation Endocrine Endocrinology: Denies systems reviewed and no addt'l complaints, except as documented Hematologic/Lymphatic Hematologic/Lymphatic: Denies anemia, easy bleeding, easy bruising or lymphadenopathy Allergic/Immunologic Allergic/Immunologic: Denies systems reviewed and no addt'l complaints, except as documented Vital Signs Vital Signs Vital Signs: 02/21/24 08:24 02/21/24 08:24 Temperature 97 F L Temperature Source Temporal Pulse Rate 81 Respiratory Rate 16 Respiratory Pattern Normal Blood Pressure 164/88 H Blood Pressure Mean 113 Blood Pressure Source Monitor Blood Pressure Position Sitting Blood Pressure Location Right Arm Pulse Ox 98 Oxygen Delivery Method Room Air Weight Weight: 270 lb Body Mass Index (BMI) 42.3 Physical Exam Const alert General Appearance: cooperative Orientation / Consciousness: oriented to person HEENT hearing grossly normal bilaterally Head and Scalp: normal to inspection Face and Sinus: face symmetric Nose: external nose normal Mouth: oral and palatal mucosa normal Eyes conjunctivae normal General Eye: normal appearance of both eyes Neck full ROM General: normal visual inspection Lymph Lymphatic: no lymphadenopathy noted Chest inspection of chest normal and palpation of chest normal Chest: symmetrical chest wall rise Resp normal respiratory effort Effort and Inspection: able to speak in complete sentences Cardio regular rate GI non-distended Percussion: normal to percussion Rectal Exam: deferred Neuro Speech: speech normal Gait (Neuro): normal gait Assessment & Plan Assessment/Plan (1) Encounter for screening for malignant neoplasm of colon: PLAN: She was explained alternatives, risk, benefits including not withstanding bleeding, infection, sepsis, perforation, need for emergent urgent . She will have an ASA of 3.
[2024-02-21 09:56] VITALS: BP 107/61; BP 164/88; PULSE 60; RESP 16; TEMP 36.1; O2SAT 97
[2024-02-21 10:00] VITALS: BP 106/62; BP 164/88; PULSE 60; RESP 16; O2SAT 97
--- NOTE | 2024-02-21 10:02 | OP.CCLET_ITS ---
02/21/2024 Jeferson Re : Colonoscopy procedure for Tameka Ashton Dear Jeferson This procedure was performed on Wednesday, February 21, 2024. My impressions and recommendations are as follows: Impressions : - Diverticulosis in the recto-sigmoid colon and in the sigmoid colon. - The examination was otherwise normal on direct and retroflexion views. - No specimens collected. Recommendations : - Discharge patient to home. - Resume previous diet. - Continue present medications. - Repeat colonoscopy in 10 years for surveillance. My findings are described in the full procedure note, which is enclosed. If I can be of further assistance, please feel free to contact me at . Sincerely, Abel Lee, 02/21/2024 10:01:53 AM This report has been signed electronically.
--- NOTE | 2024-02-21 10:02 | OP.COLON_ITS ---
Patient Name: Tameka Ashton Procedure Date: 02/21/2024 9:29 AM Date of : 1955 Age: 68 Procedure: Colonoscopy Indications: Screening for colorectal malignant neoplasm Providers: Abel Lee DO Referring MD: Lady Govea Medicines: Monitored Anesthesia Care Patient Profile: This is a 68 year old female. Refer to note in patient chart for documentation of history and physical. Last Colonoscopy: 10 years ago. Complications: No immediate complications. Procedure: Pre-Anesthesia Assessment: - Prior to the procedure, a History and Physical was performed, and patient medications and allergies were reviewed. The patient is competent. The risks and benefits of the procedure and the sedation options and risks were discussed with the patient. All questions were answered and informed consent was obtained. Patient identification and proposed procedure were verified by the physician in the pre-procedure area. Mental Status Examination: alert and oriented. Prophylactic Antibiotics: The patient does not require prophylactic antibiotics. Prior Anticoagulants: The patient has taken no anticoagulant or antiplatelet agents. After reviewing the risks and benefits, the patient was deemed in satisfactory condition to undergo the procedure. The anesthesia plan was to use monitored anesthesia care (MAC). Immediately prior to administration of medications, the patient was re-assessed for adequacy to receive sedatives. The heart rate, respiratory rate, oxygen saturations, blood pressure, adequacy of pulmonary ventilation, and response to care were monitored throughout the procedure. The physical status of the patient was re-assessed after the procedure. After I obtained informed consent, the scope was passed under direct vision. Throughout the procedure, the patient's blood pressure, pulse, and oxygen saturations were monitored continuously. The Colonoscope was introduced through the anus and advanced to the cecum, identified by appendiceal orifice and ileocecal valve. The colonoscopy was performed without difficulty. The patient tolerated the procedure well. The quality of the bowel preparation was good. Scope In: 9:40:37 AM Scope Withdrawal Time 0 hours 7 minutes 17 seconds Scope Out: 9:52:07 AM Total Procedure Duration Time 0 hours 11 minutes 30 seconds Findings: The perianal and digital rectal examinations were normal. Multiple small-mouthed diverticula were found in the recto-sigmoid colon and sigmoid colon. The exam was otherwise without abnormality on direct and retroflexion views. Impression: - Diverticulosis in the recto-sigmoid colon and in the sigmoid colon. - The examination was otherwise normal on direct and retroflexion views. - No specimens collected. Recommendation: - Discharge patient to home. - Resume previous diet. - Continue present medications. - Repeat colonoscopy in 10 years for surveillance. Procedure Code(s): --- Professional --- G0121, Colorectal cancer screening; colonoscopy on individual not meeting criteria for high risk CPT copyright 2021 [employer]. All rights reserved. The codes documented in this report are preliminary and upon banking pin adjuster review may be revised to meet current compliance requirements. Abel Lee DO 02/21/2024 10:01:53 AM This report has been signed electronically. Number of Addenda: 0 Note Initiated On: 02/21/2024 9:29 AM
[2024-02-21 10:05] VITALS: BP 107/64; BP 164/88; PULSE 63; RESP 16; O2SAT 97
[2024-02-21 10:10] VITALS: BP 115/66; BP 164/88; PULSE 50; RESP 16; TEMP 35.5; O2SAT 95
[2024-02-21 10:34] VITALS: BP 164/88
== END 2024-02-21 10:43 | disposition home or self-care (01) ==
LOC: EN 08:09 → AC 08:12
PROVIDERS: Visit Provider Internal Medicine Gastroenterology
PROC: 0DJD8ZZ Inspection of Lower Intestinal Tract, Via Natural or Artificial Opening Endoscopic (ICD-10-PCS; CPT 45378; principal; 2024-02-21 09:30)
DX: Z12.11 Encounter for screening for malignant neoplasm of colon (principal); K57.30 Diverticulosis of large intestine without perforation or abscess without bleeding; I10 Essential (primary) hypertension; K21.9 Gastro-esophageal reflux disease without esophagitis; Z79.899 Other long term (current) drug therapy; Z96.659 Presence of unspecified artificial knee joint; Z98.51 Tubal ligation status
CPT/HCPCS: 45378; J7120; J2405

== ENCOUNTER → 2024-08-25 | Outpatient (CLI) | payer MEDICARE, SELFPAY ==
--- NOTE | 2024-08-25 13:00 | BD_ITS ---
STUDY: DUAL ENERGY X-RAY ABSORPTIOMETRY / DXA REASON FOR EXAM: Female, 69 years old. 627.8Menopausal postmenopausalBONE DENSITY REASON FOR EXAM TECHNIQUE: Bone Mineral Density (BMD) measurements of lumbar spine and bilateral hips were obtained. COMPARISON: Comparison is made with prior study dated September 04, 2014. FINDINGS: Lumbar Spine (L1-L4): g/cm2 (0.892) / T-score (-1.4) / Z-score (0.7) Findings are suggestive of osteopenia with a low fracture risk. Left Femur Total: g/cm2 (0.769) / T-score (-1.4) / Z-score (0.1) Left Femoral Neck: g/cm2 (0.645) / T-score (-1.8) / Z-score (0.0) Right Femur Total: g/cm2 (0.741) / T-score (-1.6) / Z-score (-0.1) Right Femoral Neck: g/cm2 (0.640) / T-score (-1.9) / Z-score (-0.1) The T-Scores on the most recent prior examination were: Lumbar Spine (L1-L4): There has been worsening of bone density since the previous examination. Left Femur Total: which represents a worsening of 1.8%. Right Femur Total: which represents a worsening of 1.1%. BD/Dexa Bone Density Study IMPRESSION: The patient is considered osteopenic as outlined below according to World Anthony Organization (WHO) criteria with a moderate fracture risk. There has been worsening of bone density since the previous examination. Reference Information: The T-score is the number of standard deviations above or below the standard which is normal for young adults at their peak bone mineral density. The World Health Organization (WHO) interprets the T-scores as follows: Above -1 Normal bone density Between -1 and -2.5 Osteopenia Equal to / or below -2.5 Osteoporosis As a practical clinical guideline, osteopenia may be graded as follows: Mild -1 through -1.5 Moderate -1.6 through -2.0 Severe -2.1 through -2.4 The Z-score is the number of standard deviations above or below age-matched controls. A Z-score of less than -1.5 would be considered abnormal. References: 1. NIH Osteoporosis and Related Bone Diseases www osteo.org 2. International Society for Clinical Densitometry www iscd.org 3. National Osteoporosis Foundation www nof.org Electronically Signed: Esau Valadez MD at 11:12 EDT ,
--- NOTE | 2024-08-25 13:01 | BI_ITS ---
MAMMOGRAPHY - BILATERAL SCREENING REASON FOR EXAM: Female, 68 years old. Routine annual screening examination. PERTINENT HISTORY: Non-contributory. TECHNIQUE: Digital bilateral breast niles (3D mammographic acquisition) in the CC and MLO projections. 2-D mediolateral oblique (MLO) and craniocaudad (CC) views of both breasts were obtained. CAD: Full Field Digital Mammography with Computer Added Detection was performed. COMPARISON: Comparison is made with prior study dated April 26, 2023 and September 06, 2019. FINDINGS: Breast Composition: There are scattered areas of fibroglandular density. There is an 8.7 mm x 9 mm nodular density in the slightly upper lateral aspect of the left breast. Correlation with ultrasound is recommended. No other significant abnormalities are identified. BI/SCRN MAMM (CAD)W/NILES BILAT IMPRESSION: 8.7 mm x 9 mm nodular density in the slightly upper lateral aspect of the left breast. Correlation with ultrasound is recommended. ASSESSMENT CATEGORY: BIRADS Category 0: Incomplete. Need additional imaging evaluation. A letter regarding these results will be sent to the patient by the facility within 30 days. Approximately 10% of breast cancers are not detected by mammography. A normal mammogram should not delay biopsy of a clinically suspicious abnormality. [id number] Electronically Signed: Esau Valadez MD at 14:02 EDT ,
== END | disposition home or self-care (01) ==
LOC: OPBD 12:56
PROVIDERS: Referring Provider Nurse Practitioner Family; Visit Provider Nurse Practitioner Family
DX: Z12.31 Encounter for screening mammogram for malignant neoplasm of breast (principal); Z78.0 Asymptomatic menopausal state
CPT/HCPCS: 77063; 77067; 77080

== ENCOUNTER → 2024-09-06 | Outpatient (CLI) | payer MEDICARE, SELFPAY | END | disposition home or self-care (01) | LOC: OPUS 13:55 | PROVIDERS: Referring Provider Nurse Practitioner Family; Visit Provider Nurse Practitioner Family | DX: R92.8 Other abnormal and inconclusive findings on diagnostic imaging of breast (principal) | CPT/HCPCS: 76642 ==